=== PATIENT | male | born 1940 | race Caucasian/White ===

== ENCOUNTER 2016-07-25 07:45 | Day surgery (SDC) | payer MEDICARE, BC ==
[2016-07-24 08:53] VITALS: BMI 33.9
[~2016-07-25 07:45] MED LIST: DEXAMETHASONE SOD PHOSPHATE 10 MG/ML 1 ML VIAL IV ONE; HEPARIN SODIUM,PORCINE 5,000 UNIT/ML 1 ML VIAL SQ ONE; HYDROmorphone 1 MG/ML 1 ML SYRINGE IVP PRN; LACTATED RINGERS 1,000 ML IV ONE; LIDOCAINE 1% 20 ML VIAL (10MG/ML) FOR IV START INTRADERMA PRN; MIDAZOLAM 2 MG/2 ML VIAL IV PRN; ONDANSETRON 4 MG/2 ML VIAL IVP ONE; SCOPOLAMINE 1.5MG/72HR PATCH TRANSDERM ONE; ceFAZolin 2 GM in SODIUM CHLORIDE 0.9% 100 ML IVPB ONE
[2016-07-25 08:55] LABS: Glucose,Whole Blood 171 mg/dL (75-99)
--- NOTE | 2016-07-25 09:04 | P.GSHP ---
History of Present Illness H&P Date: 07/25/16 Chief Complaint: Incarcerated umbilical hernia This a 76-year-old male referred from Dr. Brennan. Patient presents today for laparoscopic robotic-assisted repair of incarcerated umbilical hernia. Patient' s had pain for several years in this area. - Constitutional Constitutional: Reports as per HPI Past Medical History Past Medical History: Diabetes Mellitus, Hyperlipidemia, Hypertension, Osteoarthritis (OA), Sleep Apnea/CPAP/BIPAP Additional Past Medical History / Comment(s): Hx. of Gout, uses C-PAP. 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 Surgery for Pilonidal cyst. Past Anesthesia/Blood Transfusion Reactions: No Reported Reaction Past Psychological History: No Psychological Hx Reported Smoking Status: Former smoker Past Alcohol Use History: None Reported Additional Past Alcohol Use History / Comment(s): Quit smoking in 1965, started as a teenager. Past Drug Use History: None Reported - Past Family History Mother Family Medical History: No Reported History Brother(s) Family Medical History: Cancer Additional Family Medical History / Comment(s): Skin cancer Medications and Allergies Home Medications Medication Instructions Recorded Confirmed Type Allopurinol [Zyloprim] 300 mg PO DAILY 07/24/16 07/24/16 History Cholecalciferol [Vitamin D3] 400 unit PO DAILY@1200 07/24/16 07/24/16 History Lisinopril [Zestril] 10 mg PO DAILY 07/24/16 07/24/16 History Multivitamin [Men's Multi-Vitamin] 1 each PO DAILY 07/24/16 07/24/16 History Simvastatin [Zocor] 20 mg PO DAILY 07/24/16 07/24/16 History Spironolactone-Hctz 25-25Mg 1 each PO DAILY 07/24/16 07/24/16 History [Aldactazide 25-25Mg] glipiZIDE XL [Glucotrol Xl] 5 mg PO BID 07/24/16 07/24/16 History sitaGLIPtin PHOS/metFORMIN HCL 1 each PO BID 07/24/16 07/24/16 History [Janumet 50-1,000 mg Tablet] Allergies Allergy/AdvReac Type Severity Reaction Status Date / Time No Known Allergies Allergy Verified 07/24/16 08:17 Surgical - Exam - General well developed, no distress - Eyes PERRL - ENT normal pinna - Neck no masses - Respiratory normal expansion - Cardiovascular Rhythm: regular - Abdomen Abdomen: soft, non tender Hernia: umbilical, incarcerated (5 cm) Results - Labs Abnormal Lab Results - Last 24 Hours (Table) 07/25/16 Range/Units 08:51 POC Glucose (mg/dL) 171 H (75-99) mg/dL Assessment and Plan Plan: Incarcerated umbilical hernia. We'll perform laparoscopic robotic assistance repair.
[2016-07-25] MEDS ORDERED: LACTATED RINGERS 1,000 ML IV ONE (09:13)
[2016-07-25] MEDS ORDERED: fentaNYL (PF) 50 MCG/ML 2 ML AMP ONE (09:17)
[2016-07-25] MEDS ORDERED: ROCURONIUM BROMIDE 10 MG/ML 10 ML VIAL IV ONE (09:17)
[2016-07-25] MEDS ORDERED: LIDOCAINE 1% INJ 10MG/ML (20 ML MDV) ONE (09:17)
[2016-07-25] MEDS ORDERED: MIDAZOLAM 2 MG/2 ML VIAL ONE (09:17)
[2016-07-25] MEDS ORDERED: GLYCOPYRROLATE 0.2 MG/ML 2 ML VIAL ONE (09:17)
[2016-07-25] MEDS ORDERED: PROPOFOL 10 MG/ML 20 ML VIAL IV ONE (09:17)
[2016-07-25] MEDS ORDERED: SUCCINYLCHOLINE CHLORIDE 100 MG/5 ML SYR IV ONE (09:17)
[2016-07-25] MEDS ORDERED: NEOSTIGMINE 1 MG/ML 10 ML VIAL ONE (09:17)
[2016-07-25] MEDS ORDERED: BUPIVACAIN-EPI 0.25%-1:200,000 30 ML VIAL SQ ONE ×2 (09:43)
--- NOTE | 2016-07-25 10:34 | P.OP ---
Date of Procedure: 07/25/16 Preoperative Diagnosis: Incarcerated umbilical hernia Postoperative Diagnosis: Incarcerated umbilical hernia Procedure(s) Performed: Laparoscopic robotic-assisted repair of incarcerated umbilical hernia Anesthesia: ALVARO Surgeon: Issac Raygoza Estimated Blood Loss (ml): 5 Pathology: none sent Condition: stable Disposition: PACU Description of Procedure: The patient's placed on the operative table in supine position. She received general anesthesia. Her abdomen was prepped and draped in the usual sterile fashion. A 5 mm blade less trocar was placed in the left upper quadrant under direct visualization. The abdomen was insufflated. Next a 8 mm robotic trocar was placed in the left lower quadrant and a 12 mm trocar is placed left lateral position. The patient's placed in the left side up position and the patient was docked to the robot. The patient had incarcerated omentum within his umbilical hernia. Using the cautery the omentum was dissected free from the hernia. The fascial defect was then closed using oh the lock suture. And then a 11 cm round ventral light ST mesh was placed the pelvic cavity and secured with 20V lock suture. The patient was undocked the robot. Adair were withdrawn. The fascia of the 12 mm trocar site was closed with the Alex Shea suture passer and 0 Ethibond suture. Skin was closed interrupted 3-0 Monocryl suture. Dermabond dressings was applied. Patient was sent to recovery in stable condition.
[2016-07-25 10:40] VITALS: TEMP 98
[2016-07-25 11:18] VITALS: RESP 18
[2016-07-25] MEDS ORDERED: HYDROcodone/APAP 7.5-325MG 1 EACH TAB PO ONE (11:30)
[2016-07-25 11:34] LABS: Glucose,Whole Blood 195 mg/dL (75-99)
[2016-07-25 11:52] VITALS: BP 118/66; PULSE 89
== END 2016-07-25 12:14 | disposition home or self-care (01) ==
LOC: OR 07:45
PROVIDERS: ATTEND Surgery
DX: K42.0 Umbilical hernia with obstruction, without gangrene (principal); E11.9 Type 2 diabetes mellitus without complications; E78.5 Hyperlipidemia, unspecified; I10 Essential (primary) hypertension; M19.90 Unspecified osteoarthritis, unspecified site; G47.33 Obstructive sleep apnea (adult) (pediatric); Z87.891 Personal history of nicotine dependence; Z79.84 Long term (current) use of oral hypoglycemic drugs; Z79.899 Other long term (current) drug therapy
CPT/HCPCS: 49653; C1781; J2250; J1644; J1100; J2710; J0690; J2405; J2001; J3010; J0330; J2704

== ENCOUNTER → 2017-06-27 | Outpatient (CLI) | payer MEDICARE, BC ==
[2017-06-27 07:51] LABS: Basophils # (A) 0.1 k/uL (0-0.2); Basophils % (A) 1 %; CH 30.7; Eosinophils # (A) 0.2 k/uL (0-0.7); Eosinophils % (A) 2 %; HCT 43.9 % (39.0-53.0); HGB 14.2 gm/dL (13.0-17.5); Luc # (Auto) 0.22; Luc % (Auto) 3; Lymphocytes # (A) 2.1 k/uL (1.0-4.8); Lymphocytes % (A) 26 %; MCH 31.2 pg (25.0-35.0); MCHC 32.4 g/dL (31.0-37.0); MCV 96.3 fL (80.0-100.0); Monocytes # (A) 0.6 k/uL (0-1.0); Monocytes % (A) 7 %; Neutrophils # (A) 4.9 k/uL (1.3-7.7); Neutrophils % (A) 61 %; RBC 4.56 m/uL (4.30-5.90); WBC 8.1 k/uL (3.8-10.6); WBC (Perox) 8.49
[2017-06-27 11:36] LABS: ALT 40 U/L (21-72); AST 26 U/L (17-59); Alkaline Phosphatase 97 U/L (38-126); Anion Gap 11 mmol/L; Blood Urea Nitrogen 28 mg/dL (9-20); Calcium 9.8 mg/dL (8.4-10.2); Carbon Dioxide 28 mmol/L (22-30); Chloride 99 mmol/L (98-107); Cholesterol 150 mg/dL (<200); Glucose 160 mg/dL (74-99); HDL Cholesterol 39 mg/dL (40-60); Non-African American GFR(MDRD) 58 (>60 ml/min/1.73 sqM); Potassium 4.7 mmol/L (3.5-5.1); Sodium 138 mmol/L (137-145); Total Bilirubin 0.6 mg/dL (0.2-1.3)
== END | disposition home or self-care (01) ==
LOC: LABWHC1 07:21
PROVIDERS: ATTEND Internal Medicine
DX: Z00.00 Encounter for general adult medical examination without abnormal findings (principal); E11.9 Type 2 diabetes mellitus without complications; E78.5 Hyperlipidemia, unspecified; I10 Essential (primary) hypertension; Z12.5 Encounter for screening for malignant neoplasm of prostate
CPT/HCPCS: 80061; 80053; 85025; 83036; 36415; G0103

== ENCOUNTER → 2018-07-03 | Outpatient (CLI) | payer MEDICARE, BC ==
[2018-07-03 08:28] LABS: HCT 43.3 % (39.0-53.0); HGB 13.8 gm/dL (13.0-17.5); MCH 30.9 pg (25.0-35.0); MCHC 31.8 g/dL (31.0-37.0); MCV 97.2 fL (80.0-100.0); Mean Platelet Volume 8.4; Platelet Count 228 k/uL (150-450); RBC 4.46 m/uL (4.30-5.90); RDW 13.2 % (11.5-15.5); WBC 10.3 k/uL (3.8-10.6)
[2018-07-03 15:56] LABS: Albumin 4.4 g/dL (3.80-4.90); Anion Gap 8.3 mmol/L (4.00-12.00); Calcium 9.5 mg/dL (8.7-10.3); Carbon Dioxide 26.7 mmol/L (21.6-31.8); Globulin 2.2 g/dL (1.6-3.3); LDL Cholesterol,Calculated 67.6 mg/dL (0.0-131.0); Potassium 4.4 mmol/L (3.5-5.5); Total Bilirubin 0.7 mg/dL (0.2-1.2); Total Protein 6.6 g/dL (6.2-8.2); VLDL Calculation 33.4 mg/dL (5.00-40.00)
[2018-07-03 19:02] LABS: Hemoglobin A1C 8.7 % (4.0-6.0)
== END ==
LOC: LABWHC1 08:00
PROVIDERS: ATTEND Internal Medicine
DX: Z00.00 Encounter for general adult medical examination without abnormal findings (principal); E11.9 Type 2 diabetes mellitus without complications; E78.5 Hyperlipidemia, unspecified; I10 Essential (primary) hypertension; Z12.5 Encounter for screening for malignant neoplasm of prostate
CPT/HCPCS: 80061; 80053; 85027; 83036; 36415; G0103

== ENCOUNTER → 2019-06-27 | Outpatient (CLI) | payer MEDICARE, BC ==
[2019-06-27 08:25] LABS: Basophils # (A) 0.1 k/uL (0-0.2); Basophils % (A) 1 %; Eosinophils # (A) 0.3 k/uL (0-0.7); Eosinophils % (A) 3 %; HCT 44.3 % (39.0-53.0); HGB 14.8 gm/dL (13.0-17.5); Lymphocytes # (A) 2.9 k/uL (1.0-4.8); Lymphocytes % (A) 28 %; MCH 32.4 pg (25.0-35.0); MCHC 33.4 g/dL (31.0-37.0); Mean Platelet Volume 9.4; Monocytes # (A) 0.7 k/uL (0-1.0); Monocytes % (A) 6 %; Neutrophils # (A) 6.2 k/uL (1.3-7.7); Neutrophils % (A) 59 %; Platelet Count 251 k/uL (150-450); RBC 4.56 m/uL (4.30-5.90); RDW 12.8 % (11.5-15.5); WBC 10.4 k/uL (3.8-10.6)
[2019-06-27 08:50] LABS: Appearance,Urine Clear (Clear); Bilirubin,Urine Negative (Negative); Blood,Urine Negative (Negative); Color,Urine Yellow; Glucose,Urine (UA) Negative (Negative); Ketones,Urine Negative (Negative); Leukocyte Esterase,Urine Negative (Negative); Nitrite,Urine Negative (Negative); PH, Urine 5.5 (5.0-8.0); Protein,Urine Negative (Negative); Specific Gravity,Urine 1.018 (1.001-1.035); Urobilinogen,Urine <2.0 mg/dL (<2.0)
[2019-06-27 16:15] LABS: African American GFR (CKD) 59.3 (60.0-200.0); Albumin 4.5 g/dL (3.80-4.90); Albumin/Globulin Ratio 1.96 (1.60-3.17); Anion Gap 9.8 mmol/L (4.00-12.00); BUN/Creat Ratio 23.85 Ratio (12.00-20.00); Calcium 9.5 mg/dL (8.7-10.3); Carbon Dioxide 27.2 mmol/L (21.6-31.8); Chol/HDL Ratio 3.63; Globulin 2.3 g/dL (1.6-3.3); LDL Cholesterol,Calculated 76.4 mg/dL (0.0-131.0); Non-African American GFR(CKD) 51.2 (60.0-200.0); Potassium 4.8 mmol/L (3.5-5.5); Total Bilirubin 0.6 mg/dL (0.3-1.2); Total Protein 6.8 g/dL (6.2-8.2); VLDL Calculation 28.6 mg/dL (5.00-40.00)
== END | disposition home or self-care (01) ==
LOC: LABWHC1 07:48
PROVIDERS: ATTEND Internal Medicine
DX: Z00.00 Encounter for general adult medical examination without abnormal findings (principal); Z12.5 Encounter for screening for malignant neoplasm of prostate; E11.9 Type 2 diabetes mellitus without complications; E78.5 Hyperlipidemia, unspecified; I10 Essential (primary) hypertension
CPT/HCPCS: 36415; 80053; 80061; 81003; 84153; 85025

== ENCOUNTER 2019-08-26 07:27 | Day surgery (SDC) | payer MEDICARE, BC ==
[2019-08-22 11:19] VITALS: BMI 33.9
[~2019-08-26 07:27] MED LIST changes: -DEXAMETHASONE SOD PHOSPHATE 10 MG/ML 1 ML VIAL IV ONE; -HEPARIN SODIUM,PORCINE 5,000 UNIT/ML 1 ML VIAL SQ ONE; -HYDROmorphone 1 MG/ML 1 ML SYRINGE IVP PRN; -LACTATED RINGERS 1,000 ML IV ONE; +LACTATED RINGERS 1,000 ML IV SCH; -LIDOCAINE 1% 20 ML VIAL (10MG/ML) FOR IV START INTRADERMA PRN; -MIDAZOLAM 2 MG/2 ML VIAL IV PRN; -ONDANSETRON 4 MG/2 ML VIAL IVP ONE; -SCOPOLAMINE 1.5MG/72HR PATCH TRANSDERM ONE; -ceFAZolin 2 GM in SODIUM CHLORIDE 0.9% 100 ML IVPB ONE
[2019-08-26] MEDS: PHENYLEPHRINE 10% OPHTH DROPS 5 ML BTL OP ONE ×3 (07:52→08:11)
[2019-08-26] MEDS: CYCLOPENTOLATE 1% OPHTH SOLN 2 ML BTL OP ONE ×3 (07:55→08:14)
[2019-08-26 07:56] VITALS: TEMP 97.1
[2019-08-26] MEDS: KETOROLAC 0.5% OPHTH DROPS 5 ML BTL OP ONE ×3 (08:00→08:16)
[2019-08-26] MEDS ORDERED: LIDOCAINE 1% 20 ML VIAL (10MG/ML) FOR IV START INTRADERMA ONE (08:01)
[2019-08-26 08:04] LABS: Glucose,Whole Blood 168 mg/dL (75-99)
[2019-08-26] MEDS ORDERED: PROPOFOL 10 MG/ML 20 ML VIAL IV ONE (09:04)
[2019-08-26] MEDS ORDERED: EPINEPHrine (PF) 0.5 ML in BALANCED SALT IRRIG SOLN COMB2 500 ML IRRIGATION ONE (09:20)
[2019-08-26] MEDS ORDERED: BALANCED SALT IRRIG SOLN COMB2 15 ML IRRIG.SOLN INTRAOCULA ONE (09:24)
[2019-08-26] MEDS ORDERED: HYALURONATE SODIUM INTRAOCULAR 1 EACH SYRINGE (10MG/ML) INTRAOCULA ONE (09:25)
[2019-08-26 09:37] VITALS: RESP 18
[2019-08-26 09:53] VITALS: BP 99/62; PULSE 74
--- NOTE | 2019-08-26 10:38 | P.OP ---
Date of Procedure: 08/26/19 Procedure(s) Performed: PREOPERATIVE DIAGNOSIS: Cataract, left eye. POSTOPERATIVE DIAGNOSIS: Cataract, left eye. OPERATION: Phacoemulsification of cataract, intraocular lens placement, left eye. DESCRIPTION OF PROCEDURE: The patient was taken to the operating room. Intravenous Propofol was given so as to bring about sedation. The following mixture was given for local anesthesia: 5 mL of 2% lidocaine, 5 mL of 0.75% Marcaine, and 1 mL of Wydase. Approximately 4 mL was injected in the retrobulbar space of the surgical eye. Additional 1 mL was then directed to the temporal area of the surgical eye. This was performed to allow adequate neurological block of the facial muscles. The patient was revived. The patient was prepped and draped in the usual sterile manner for the operative eye. A lid speculum was put into position. The conjunctiva was resected back from the limbus in the 12 o'clock position. Bleeding was controlled with electrocautery. A #69 blade was then used and a half-thickness scleral incision approximately 1-mm posterior to the limbus was made on bare sclera. This was shelved in the clear cornea using a crescent knife. Next a 15-degree blade was used to make a stab incision at the 3 o'clock position at the corneolimbal interface. A keratome blade was then used and the superior wound was extended into the anterior chamber. Viscoelastic was injected into the anterior chamber to maintain its form. A cystotome was used and a continuous anterior capsulot esdras was made. Hydrodissection of the lens cortex using a blunt cannula and BSS was performed. A phaco probe was then introduced and a groove extending from 12 to 6 o'clock in the lens was created. A Kemar wand was used through the stab incision and used to perform a divide and conquer dismantling of the cataract. An irrigation aspiration probe was utilized and any residual cortex was removed from the eye. Again, viscoelastic was injected into the anterior chamber. An Chris posterior chamber lens implant was placed in a delivery cartridge and injected into the anterior chamber. A Sinskey hook was utilized to spin the lens into position within the capsular bag. The irrigation and aspiration probe was again introduced and any residual viscoelastic was removed from the eye. BSS was injected via blunt canula into the limbal stab incision and the anterior chamber was re-inflated. The conjunctiva was reapproximated using electrocautery. One drop of 0.25% Timoptic was placed over the corneal along with an antibiotic ophthalmic ointment. Two sterile patches and a Garza eye shield were taped into position. The patient was transported to the recovery room in stable condition. Pathology: none sent Condition: stable Disposition: same day
[2019-08-26] MEDS ORDERED: BUPIVACAINE (PF) 0.75% 5 ML, HYALURONIDASE, HUMAN RECOMB 150 UNIT, LIDOCAINE 2% (PF) 10... MISCELLANE ONE ×3 (23:00)
[2019-08-26] MEDS ORDERED: TIMOLOL 0.5% OPHTH DROPS 5 ML BTL OP ONE (23:00)
[2019-08-26] MEDS ORDERED: TOBRA-DEXAMET 0.3-0.1% OPHTH OINT 3.5 GM TUBE OPHTHALMIC ONE (23:00)
== END 2019-08-26 10:14 | disposition home or self-care (01) ==
LOC: OR 07:27
PROVIDERS: ATTEND Ophthalmology
DX: E11.36 Type 2 diabetes mellitus with diabetic cataract (principal); H25.13 Age-related nuclear cataract, bilateral; H53.2 Diplopia; I10 Essential (primary) hypertension; M10.9 Gout, unspecified; G47.33 Obstructive sleep apnea (adult) (pediatric); E78.5 Hyperlipidemia, unspecified; Z87.891 Personal history of nicotine dependence; Z79.84 Long term (current) use of oral hypoglycemic drugs; Z79.899 Other long term (current) drug therapy; Z83.3 Family history of diabetes mellitus
CPT/HCPCS: 66984; V2632; J3470; J2001; J0171; J2704

== ENCOUNTER → 2019-09-23 | Day surgery (SDC) | payer MEDICARE, BC ==
[2019-09-22 10:36] VITALS: BMI 33.5
[~2019-09-23] MED LIST changes: +BALANCED SALT IRRIG SOLN COMB2 15 ML IRRIG.SOLN INTRAOCULA ONE; +BUPIVACAINE (PF) 0.75% 5 ML, HYALURONIDASE, HUMAN RECOMB 150 UNIT, LIDOCAINE 2% (PF) 10... MISCELLANE ONE; +EPINEPHrine (PF) 0.5 ML in BALANCED SALT IRRIG SOLN COMB2 500 ML IRRIGATION ONE; +GENTAMICIN/PREDNISOL AC OPHTH OINT 3.5GM OPHTHALMIC ONE; +HYALURONATE SODIUM INTRAOCULAR 1 EACH SYRINGE (10MG/ML) INTRAOCULA ONE; +MIDAZOLAM 2 MG/2 ML VIAL ONE; +PROPOFOL 10 MG/ML 20 ML VIAL IV ONE; +TIMOLOL 0.5% OPHTH DROPS 5 ML BTL OP ONE; +TOBRA-DEXAMET 0.3-0.1% OPHTH OINT 3.5 GM TUBE OPHTHALMIC ONE
[2019-09-23] MEDS: CYCLOPENTOLATE 1% OPHTH SOLN 2 ML BTL OP ONE ×3 (08:34→08:52)
[2019-09-23] MEDS: PHENYLEPHRINE 10% OPHTH DROPS 5 ML BTL OP ONE ×3 (08:37→08:55)
[2019-09-23] MEDS: KETOROLAC 0.5% OPHTH DROPS 5 ML BTL OP ONE ×2 (08:40→08:58)
[2019-09-23 08:49] LABS: Glucose,Whole Blood 187 mg/dL (75-99)
[2019-09-23 09:01] VITALS: TEMP 97.1
--- NOTE | 2019-09-23 09:37 | P.OP ---
Date of Procedure: 09/23/19 Procedure(s) Performed: PREOPERATIVE DIAGNOSIS: Cataract, right eye. POSTOPERATIVE DIAGNOSIS: Cataract, right eye. OPERATION: Phacoemulsification of cataract, intraocular lens placement, right eye. DESCRIPTION OF PROCEDURE: The patient was taken to the operating room. Intravenous Propofol was given so as to bring about sedation. The following mixture was given for local anesthesia: 5 mL of 2% lidocaine, 5 mL of 0.75% Marcaine, and 1 mL of Wydase. Approximately 4 mL was injected in the retrobu lbar space of the surgical eye. Additional 1 mL was then directed to the temporal area of the surgical eye. This was performed to allow adequate neurological block of the facial muscles. The patient was revived. The patient was prepped and draped in the usual sterile manner for the operative eye. A lid speculum was put into position. The conjunctiva was resected back from the limbus in the 12 o'clock position. Bleeding was controlled with electrocautery. A #69 blade was then used and a half-thickness scleral incision approximately 1-mm posterior to the limbus was made on bare sclera. This was shelved in the clear cornea using a crescent knife. Next a 15-degree blade was used to make a stab incision at the 3 o'clock position at the corneolimbal interface. A keratome blade was then used and the superior wound was extended into the anterior chamber. Viscoelastic was injected into the anterior chamber to maintain its form. A cystotome was used and a continuous anterior capsu lotomy was made. Hydrodissection of the lens cortex using a blunt cannula and BSS was performed. A phaco probe was then introduced and a groove extending from 12 to 6 o'clock in the lens was created. A Kemar wand was used through the stab incision and used to perform a divide and conquer dismantling of the cataract. An irrigation aspiration probe was utilized and any residual cortex was removed from the eye. Again, viscoelastic was injected into the anterior chamber. An Chris posterior chamber lens implant was placed in a delivery cartridge and injected into the anterior chamber. A Sinskey hook was utilized to spin the lens into position within the capsular bag. The irrigation and aspiration probe was again introduced and any residual viscoelastic was removed from the eye. BSS was injected via blunt canula into the limbal stab incision and the anterior chamber was re-inflated. The conjunctiva was reapproximated using electrocautery. One drop of 0.25% Timoptic was placed over the corneal along with an antibiotic ophthalmic ointment. Two sterile patches and a Garza eye shield were taped into position. The patient was transported to the recovery room in stable condition. Pathology: none sent Condition: stable Disposition: same day
[2019-09-23 09:41] VITALS: RESP 16
[2019-09-23 10:05] VITALS: BP 111/70; PULSE 74
== END | disposition home or self-care (01) ==
LOC: OR 07:32
PROVIDERS: ATTEND Ophthalmology
DX: E11.36 Type 2 diabetes mellitus with diabetic cataract (principal); H25.13 Age-related nuclear cataract, bilateral; Z83.3 Family history of diabetes mellitus; I10 Essential (primary) hypertension; M10.9 Gout, unspecified; E78.5 Hyperlipidemia, unspecified; G47.33 Obstructive sleep apnea (adult) (pediatric); M19.90 Unspecified osteoarthritis, unspecified site; Z87.891 Personal history of nicotine dependence; Z97.2 Presence of dental prosthetic device (complete) (partial); Z98.890 Other specified postprocedural states; Z79.84 Long term (current) use of oral hypoglycemic drugs; Z79.899 Other long term (current) drug therapy
CPT/HCPCS: 66984; V2632; J2250; J3470; J2001; J0171; J2704

== ENCOUNTER → 2020-07-16 | Outpatient (CLI) | payer MEDICARE, BC ==
[2020-07-16 12:20] LABS: Appearance,Urine Clear (Clear); Bilirubin,Urine Negative (Negative); Blood,Urine Negative (Negative); Color,Urine Yellow; Glucose,Urine (UA) Negative (Negative); Ketones,Urine Negative (Negative); Leukocyte Esterase,Urine Negative (Negative); Nitrite,Urine Negative (Negative); Protein,Urine Negative (Negative); Specific Gravity,Urine 1.019 (1.001-1.035); Urobilinogen,Urine <2.0 mg/dL (<2.0)
[2020-07-16 16:51] LABS: African American GFR (CKD) 58.9 (60.0-200.0); Albumin 4.5 g/dL (3.80-4.90); Albumin/Globulin Ratio 1.96 (1.60-3.17); Anion Gap 9.8 mmol/L (4.00-12.00); BUN/Creat Ratio 23.08 Ratio (12.00-20.00); Calcium 9.6 mg/dL (8.7-10.3); Carbon Dioxide 26.2 mmol/L (21.6-31.8); Chol/HDL Ratio 2.9; Globulin 2.3 g/dL (1.6-3.3); LDL Cholesterol,Calculated 75.2 mg/dL (0.0-131.0); Non-African American GFR(CKD) 50.8 (60.0-200.0); Potassium 4.5 mmol/L (3.5-5.5); Total Bilirubin 0.5 mg/dL (0.3-1.2); Total Protein 6.8 g/dL (6.2-8.2); VLDL Calculation 15.8 mg/dL (5.00-40.00)
[2020-07-16 17:14] LABS: Prostate Specific Antigen 0.4 ng/mL (0.0-6.5)
[2020-07-16 22:25] LABS: Urine Creatinine 108.9 mg/dL
== END | disposition home or self-care (01) ==
LOC: LABWHC1 07:45
PROVIDERS: ATTEND Internal Medicine
DX: I10 Essential (primary) hypertension (principal); E11.9 Type 2 diabetes mellitus without complications; E55.9 Vitamin D deficiency, unspecified; Z12.5 Encounter for screening for malignant neoplasm of prostate
CPT/HCPCS: 36415; 80053; 80061; 81003; 82043; 82306; 82570; 84153

== ENCOUNTER 2022-01-09 15:55 | Emergency (ER) | payer BC, MEDICARE ==
[2022-01-09 16:01] VITALS: TEMP 98.3
--- NOTE | 2022-01-09 16:21 | ED ---
General Adult HPI - General Chief complaint: Altered Mental Status Stated complaint: Altered Mental Time Seen by Provider: 01/09/22 16:05 Source: patient Mode of arrival: ambulatory Limitations: no limitations - History of Present Illness Initial comments: 81-year-old male with past medical history of diabetes, hypertension presents to the emergency department with altered mental status. Grandessenceughters at bedside and provides history. States that he was acting fine around 4 PM last night. He then went into the bedroom where he was with his . He attempted to sit on furniture that he hallucinated was behind him, however felt to the floor. U nknown if he has had however he had no external signs of trauma. The patient then laid down and was very sleepy throughout the night. This morning the patient awoke and went down the street to talk to neighbors. He pulled up in his vehicle onset high. He then fell asleep in his car. They state the patient has had similar symptoms in the past and was hospital is at [facility] for congestive heart failure. They deny any fevers. Patient is not on any anticoagulation. Patient denies any chest pain, shortness of breath, abdominal pain. No other alleviating, precipitating or modifying factors - Related Data Home Medications Medication Instructions Recorded Confirmed Simvastatin [Zocor] 20 mg PO DAILY 07/24/16 01/09/22 allopurinoL [Zyloprim] 300 mg PO DAILY 07/24/16 01/09/22 glipiZIDE XL [Glucotrol Xl] 10 mg PO BID 07/24/16 01/09/22 sitaGLIPtin PHOS/metFORMIN HCL 1 tab PO BID 07/24/16 01/09/22 [Janumet 50-1,000 mg Tablet] Cholecalciferol [Vitamin D3 (25 50 mcg PO DAILY 01/09/22 01/09/22 Mcg = 1000 Iu)] Furosemide [Lasix] 40 mg PO DAILY PRN 01/09/22 01/09/22 Tamsulosin [Flomax] 0.4 mg PO DAILY 01/09/22 01/09/22 Tobra-Dexamet 0.3-0.1% Eye Talita 1 drop BOTH EYES TID 01/09/22 01/09/22 [Tobradex Ophth Susp] Allergies Allergy/AdvReac Type Severity Reaction Status Date / Time No Known Allergies Allergy Verified 01/09/22 16:53 Review of Systems ROS Statement: Those systems with pertinent positive or pertinent negative responses have been documented in the HPI. ROS Other: All systems not noted in ROS Statement are negative. Past Medical History Past Medical History: Diabetes Mellitus, Hyperlipidemia, Hypertension, Osteoarthritis (OA), Sleep Apnea/CPAP/BIPAP Additional Past Medical History / Comment(s): Hx. of Gout, uses C-PAP. 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 Surgery for Pilonidal cyst. Past Anesthesia/Blood Transfusion Reactions: No Reported Reaction Past Psychological History: No Psychological Hx Reported Past Alcohol Use History: None Reported Past Drug Use History: None Reported - Past Family History Mother Family Medical History: No Reported History Brother(s) Family Medical History: Cancer Additional Family Medical History / Comment(s): Skin cancer General Exam Limitations: no limitations, physical limitation (hard of hearing) General appearance: alert, in no apparent distress Head exam: Present: atraumatic, normocephalic, normal inspection Eye exam: Present: normal appearance, PERRL, EOMI. Absent: scleral icterus, conjunctival injection, periorbital swelling ENT exam: Present: normal exam, mucous membranes moist Neck exam: Present: normal inspection. Absent: tenderness, meningismus, lymphadenopathy Respiratory exam: Present: normal lung sounds bilaterally. Absent: respiratory distress, wheezes, rales, rhonchi, stridor Cardiovascular Exam: Present: regular rate, normal rhythm, normal heart sounds. Absent: systolic murmur, diastolic murmur, rubs, gallop, clicks GI/Abdominal exam: Present: soft, normal bowel sounds. Absent: distended, tenderness, guarding, rebound, rigid Extremities exam: Present: normal inspection, full ROM, normal capillary refill, pedal edema (2+). Absent: tenderness, joint swelling, calf tenderness Back exam: Present: normal inspection Neurological exam: Present: alert, oriented X3, CN II-XII intact Psychiatric exam: Present: normal affect, normal mood Skin exam: Present: warm, dry, intact, normal color. Absent: rash Course Vital Signs 01/09/22 01/09/22 01/09/22 15:57 18:20 20:00 Temperature 98.3 F Pulse Rate 87 85 Respiratory 16 18 Rate Blood Pressure 119/64 113/74 117/63 O2 Sat by Pulse 95 95 Oximetry 01/09/22 20:15 Temperature Pulse Rate 81 Respiratory 6 L Rate Blood Pressure 117/83 O2 Sat by Pulse 98 Oximetry - Reevaluation(s) Reevaluation #1: 01/09/22 4661 - spoke with patient. Adamant that he wants to go home. Did request second troponin level for which she was agreeable to. Troponin drawn and running at this time. EKG Findings - EKG Comments: EKG Findings:: EKG demonstrates sinus rhythm with a rate of 85. HI interval 155. QRS 101. QTC of 440. No acute ST segment elevations or depressions Medical Decision Making - Medical Decision Making Upon arrival patient is placed into room 7. Thorough history and physical exam was performed. IV is established and laboratory studies are conducted. Troponin mildly elevated at 0.059. Patient does have an elevated BNP of 1510. Urinalysis negative. Chest x-ray demonstrates mild fluid versus interstitial pneumonia. Patient has no current signs of pneumonia. CT head and cervical spine demonstrates mild atrophy and chronic small vessel ischemia with no acute intracranial abnormality. Results are discussed with the patient. He has been conversing with family and is appropriate. Patient is requesting discharge home. I did recommend admission. Patient is awake, alert and capable of making his own decisions. He does have family at bedside. Family is agreeable to take him home for monitoring. He needs to follow up with his primary care doctor in 2-4 days and return for any new or worsening symptoms. Patient and family agreed and he was discharged home in stable condition I did obtain an ABG which demonstrates a pH 7.4. PCO2 40. PO2 of 72. Sats of 95 - Lab Data Result diagrams: 01/09/22 16:25 01/09/22 16:25 Lab Results 01/09/22 01/09/22 01/09/22 Range/Units 16:25 16:25 16:25 WBC 9.7 (3.8-10.6) k/uL RBC 3.91 L (4.30-5.90) m/uL Hgb 12.6 L (13.0-17.5) gm/dL Hct 38.3 L (39.0-53.0) % MCV 98.0 (80.0-100.0) fL MCH 32.3 (25.0-35.0) pg MCHC 33.0 (31.0-37.0) g/dL RDW 14.5 (11.5-15.5) % Plt Count 186 (150-450) k/uL MPV 9.8 Neutrophils % 62 % Lymphocytes % 27 % Monocytes % 7 % Eosinophils % 2 % Basophils % 1 % Neutrophils # 6.0 (1.3-7.7) k/uL Lymphocytes # 2.6 (1.0-4.8) k/uL Monocytes # 0.7 (0-1.0) k/uL Eosinophils # 0.2 (0-0.7) k/uL Basophils # 0.1 (0-0.2) k/uL PT (9.0-12.0) sec INR (<1.2) APTT (22.0-30.0) sec Sample Site ABG pH (7.35-7.45) ABG pCO2 (35-45) mmHg ABG pO2 (83-108) mmHg ABG HCO3 (21-25) mmol/L ABG Total CO2 (19-24) mmol/L ABG O2 Saturation (94-97) % ABG Base Excess mmol/L Leon Test FiO2 % Sodium 135 L (137-145) mmol/L Potassium 3.8 (3.5-5.1) mmol/L Chloride 98 (98-107) mmol/L Carbon Dioxide 27 (22-30) mmol/L Anion Gap 10 mmol/L BUN 19 (9-20) mg/dL Creatinine 1.16 (0.66-1.25) mg/dL Est GFR (CKD-EPI)AfAm 68 (>60 ml/min/1.73 sqM) Est GFR (CKD-EPI)NonAf 58 (>60 ml/min/1.73 sqM) Glucose 147 H (74-99) mg/dL Calcium 8.8 (8.4-10.2) mg/dL Total Bilirubin 0.5 (0.2-1.3) mg/dL AST 24 (17-59) U/L ALT 13 (4-49) U/L Alkaline Phosphatase 110 (38-126) U/L Ammonia (<30) umol/L Troponin I (0.000-0.034) ng/mL NT-Pro-B Natriuret Pep pg/mL Total Protein 7.1 (6.3-8.2) g/dL Albumin 4.0 (3.5-5.0) g/dL TSH 3.450 (0.465-4.680) mIU/L Urine Color Yellow Urine Appearance Clear (Clear) Urine pH 6.0 (5.0-8.0) Ur Specific [place] 1.011 (1.001-1.035) Urine Protein Negative (Negative) Urine Glucose (UA) Negative (Negative) Urine Ketones Negative (Negative) Urine Blood Negative (Negative) Urine Nitrite Negative (Negative) Urine Bilirubin Negative (Negative) Urine Urobilinogen <2.0 (<2.0) mg/dL Ur Leukocyte Esterase Negative (Negative) Urine Opiates Screen Not Detected (NotDetected) Ur Oxycodone Screen Not Detected (NotDetected) Urine Methadone Screen Not Detected (NotDetected) Ur Propoxyphene Screen Not Detected (NotDetected) Ur Barbiturates Screen Not Detected (NotDetected) U Tricyclic Antidepress Not Detected (NotDetected) Ur Phencyclidine Scrn Not Detected (NotDetected) Ur Amphetamines Screen Not Detected (NotDetected) U Methamphetamines Scrn Not Detected (NotDetected) U Benzodiazepines Scrn Not Detected (NotDetected) Urine Cocaine Screen Not Detected (NotDetected) U Marijuana (THC) Screen Not Detected (NotDetected) Serum Alcohol <10 mg/dL 01/09/22 01/09/22 01/09/22 Range/Units 16:25 16:25 16:25 WBC (3.8-10.6) k/uL RBC (4.30-5.90) m/uL Hgb (13.0-17.5) gm/dL Hct (39.0-53.0) % MCV (80.0-100.0) fL MCH (25.0-35.0) pg MCHC (31.0-37.0) g/dL RDW (11.5-15.5) % Plt Count (150-450) k/uL MPV Neutrophils % % Lymphocytes % % Monocytes % % Eosinophils % % Basophils % % Neutrophils # (1.3-7.7) k/uL Lymphocytes # (1.0-4.8) k/uL Monocytes # (0-1.0) k/uL Eosinophils # (0-0.7) k/uL Basophils # (0-0.2) k/uL PT (9.0-12.0) sec INR (<1.2) APTT (22.0-30.0) sec Sample Site ABG pH (7.35-7.45) ABG pCO2 (35-45) mmHg ABG pO2 (83-108) mmHg ABG HCO3 (21-25) mmol/L ABG Total CO2 (19-24) mmol/L ABG O2 Saturation (94-97) % ABG Base Excess mmol/L Leon Test FiO2 % Sodium (137-145) mmol/L Potassium (3.5-5.1) mmol/L Chloride (98-107) mmol/L Carbon Dioxide (22-30) mmol/L Anion Gap mmol/L BUN (9-20) mg/dL Creatinine (0.66-1.25) mg/dL Est GFR (CKD-EPI)AfAm (>60 ml/min/1.73 sqM) Est GFR (CKD-EPI)NonAf (>60 ml/min/1.73 sqM) Glucose (74-99) mg/dL Calcium (8.4-10.2) mg/dL Total Bilirubin (0.2-1.3) mg/dL AST (17-59) U/L ALT (4-49) U/L Alkaline Phosphatase (38-126) U/L Ammonia <9 (<30) umol/L Troponin I 0.059 H* (0.000-0.034) ng/mL NT-Pro-B Natriuret Pep 1510 pg/mL Total Protein (6.3-8.2) g/dL Albumin (3.5-5.0) g/dL TSH (0.465-4.680) mIU/L Urine Color Urine Appearance (Clear) Urine pH (5.0-8.0) Ur Specific [place] (1.001-1.035) Urine Protein (Negative) Urine Glucose (UA) (Negative) Urine Ketones (Negative) Urine Blood (Negative) Urine Nitrite (Negative) Urine Bilirubin (Negative) Urine Urobilinogen (<2.0) mg/dL Ur Leukocyte Esterase (Negative) Urine Opiates Screen (NotDetected) Ur Oxycodone Screen (NotDetected) Urine Methadone Screen (NotDetected) Ur Propoxyphene Screen (NotDetected) Ur Barbiturates Screen (NotDetected) U Tricyclic Antidepress (NotDetected) Ur Phencyclidine Scrn (NotDetected) Ur Amphetamines Screen (NotDetected) U Methamphetamines Scrn (NotDetected) U Benzodiazepines Scrn (NotDetected) Urine Cocaine Screen (NotDetected) U Marijuana (THC) Screen (NotDetected) Serum Alcohol mg/dL 01/09/22 01/09/22 01/09/22 Range/Units 16:40 18:03 18:43 WBC (3.8-10.6) k/uL RBC (4.30-5.90) m/uL Hgb (13.0-17.5) gm/dL Hct (39.0-53.0) % MCV (80.0-100.0) fL MCH (25.0-35.0) pg MCHC (31.0-37.0) g/dL RDW (11.5-15.5) % Plt Count (150-450) k/uL MPV Neutrophils % % Lymphocytes % % Monocytes % % Eosinophils % % Basophils % % Neutrophils # (1.3-7.7) k/uL Lymphocytes # (1.0-4.8) k/uL Monocytes # (0-1.0) k/uL Eosinophils # (0-0.7) k/uL Basophils # (0-0.2) k/uL PT 11.4 (9.0-12.0) sec INR 1.1 (<1.2) APTT 26.5 (22.0-30.0) sec Sample Site rbrac ABG pH 7.45 (7.35-7.45) ABG pCO2 41 (35-45) mmHg ABG pO2 73 L (83-108) mmHg ABG HCO3 28 H (21-25) mmol/L ABG Total CO2 29 H (19-24) mmol/L ABG O2 Saturation 95.5 (94-97) % ABG Base Excess 3.8 mmol/L Leon Test Yes FiO2 21 % Sodium (137-145) mmol/L Potassium (3.5-5.1) mmol/L Chloride (98-107) mmol/L Carbon Dioxide (22-30) mmol/L Anion Gap mmol/L BUN (9-20) mg/dL Creatinine (0.66-1.25) mg/dL Est GFR (CKD-EPI)AfAm (>60 ml/min/1.73 sqM) Est GFR (CKD-EPI)NonAf (>60 ml/min/1.73 sqM) Glucose (74-99) mg/dL Calcium (8.4-10.2) mg/dL Total Bilirubin (0.2-1.3) mg/dL AST (17-59) U/L ALT (4-49) U/L Alkaline Phosphatase (38-126) U/L Ammonia (<30) umol/L Troponin I 0.070 H* (0.000-0.034) ng/mL NT-Pro-B Natriuret Pep pg/mL Total Protein (6.3-8.2) g/dL Albumin (3.5-5.0) g/dL TSH (0.465-4.680) mIU/L Urine Color Urine Appearance (Clear) Urine pH (5.0-8.0) Ur Specific [place] (1.001-1.035) Urine Protein (Negative) Urine Glucose (UA) (Negative) Urine Ketones (Negative) Urine Blood (Negative) Urine Nitrite (Negative) Urine Bilirubin (Negative) Urine Urobilinogen (<2.0) mg/dL Ur Leukocyte Esterase (Negative) Urine Opiates Screen (NotDetected) Ur Oxycodone Screen (NotDetected) Urine Methadone Screen (NotDetected) Ur Propoxyphene Screen (NotDetected) Ur Barbiturates Screen (NotDetected) U Tricyclic Antidepress (NotDetected) Ur Phencyclidine Scrn (NotDetected) Ur Amphetamines Screen (NotDetected) U Methamphetamines Scrn (NotDetected) U Benzodiazepines Scrn (NotDetected) Urine Cocaine Screen (NotDetected) U Marijuana (THC) Screen (NotDetected) Serum Alcohol mg/dL Disposition Clinical Impression: Acute encephalopathy Disposition: HOME SELF-CARE Condition: Stable Instructions (If sedation given, give patient instructions): Altered Mental Status (ED) Additional Instructions: Please return to the emergency department should your symptoms worsen. I would like you to see your doctor within 2-4 days. Is patient prescribed a controlled substance at d/c from ED?: No Referrals: Gracie Lazar MD [Primary Care Provider] - 1-2 days Time of Disposition: 19:54
[2022-01-09 16:41] LABS: ALT 13 U/L (4-49); AST 24 U/L (17-59); African American GFR (CKD) 68 (>60 ml/min/1.73 sqM); Alcohol <10 mg/dL; Alkaline Phosphatase 110 U/L (38-126); Anion Gap 10 mmol/L; Blood Urea Nitrogen 19 mg/dL (9-20); Calcium 8.8 mg/dL (8.4-10.2); Carbon Dioxide 27 mmol/L (22-30); Chloride 98 mmol/L (98-107); Glucose 147 mg/dL (74-99); Non-African American GFR(CKD) 58 (>60 ml/min/1.73 sqM); Potassium 3.8 mmol/L (3.5-5.1); Sodium 135 mmol/L (137-145); Total Bilirubin 0.5 mg/dL (0.2-1.3); Total Protein 7.1 g/dL (6.3-8.2)
[2022-01-09 16:45] LABS: Basophils # (A) 0.1 k/uL (0-0.2); Basophils % (A) 1 %; Eosinophils # (A) 0.2 k/uL (0-0.7); Eosinophils % (A) 2 %; HCT 38.3 % (39.0-53.0); HGB 12.6 gm/dL (13.0-17.5); Lymphocytes # (A) 2.6 k/uL (1.0-4.8); Lymphocytes % (A) 27 %; MCH 32.3 pg (25.0-35.0); Mean Platelet Volume 9.8; Monocytes # (A) 0.7 k/uL (0-1.0); Monocytes % (A) 7 %; Neutrophils % (A) 62 %; Platelet Count 186 k/uL (150-450); RBC 3.91 m/uL (4.30-5.90); RDW 14.5 % (11.5-15.5); WBC 9.7 k/uL (3.8-10.6)
[2022-01-09 16:56] LABS: INR 1.1 (<1.2); Prothrombin Time 11.4 sec (9.0-12.0)
[2022-01-09 16:57] LABS: Partial Thromboplastin Time 26.5 sec (22.0-30.0)
--- NOTE | 2022-01-09 17:11 | CT ---
EXAMINATION TYPE: CT brain susan phelps DATE OF EXAM: 01/09/2022 COMPARISON: None HISTORY: Altered mental status. CT DLP: 1794.5 mGycm Automated exposure control for dose reduction was used. There is cerebral cortical atrophy. There is minimal hypodensity in the periventricular white matter. There is no mass effect or midline shift. No sign of intracranial hemorrhage. The calvarium is intac t skull base is intact. There is normal aeration of the temporal bones. Cervical vertebrae show degenerative disc space narrowing at C5-6 and C6-7 with spurring of the endpl ates. There is mild cervical multilevel facet arthropathy. No compression fracture. There is a slight anterior subluxation of C5 in relation to C6. No cervical paraspinal mass. Facet joints are intact. IMPRESSION: Mild atrophy and chronic small vessel ischemia. No acute intracranial abnormality. Spondylotic changes in the cervical spine. No fracture.
--- NOTE | 2022-01-09 17:12 | XR ---
EXAMINATION TYPE: XR chest 2V DATE OF EXAM: 01/09/2022 COMPARISON: NONE HISTORY: Altered mental status TECHNIQUE: 2 views FINDINGS: There is coarsening of the interstitial markings. There is pulmonary interstitial edema. He art size is normal. Thoracic aorta is atheromatous. There are chest leads. IMPRESSION: There is some pulmonary edema could be acute heart failure or acute interstitial pneumoni a.
[2022-01-09 18:06] LABS: ABG Base Excess 3.8 mmol/L; ABG HCO3 28 mmol/L (21-25); ABG Oxygen Saturation 95.5 % (94-97); ABG PCO2 41 mmHg (35-45); ABG PH 7.45 (7.35-7.45); ABG PO2 73 mmHg (83-108); ABG TCO2 29 mmol/L (19-24); Allen Test Performed? Yes
[2022-01-09 18:37] LABS: Appearance,Urine Clear (Clear); Bilirubin,Urine Negative (Negative); Blood,Urine Negative (Negative); Color,Urine Yellow; Glucose,Urine (UA) Negative (Negative); Ketones,Urine Negative (Negative); Leukocyte Esterase,Urine Negative (Negative); Nitrite,Urine Negative (Negative); Protein,Urine Negative (Negative); Specific Gravity,Urine 1.011 (1.001-1.035); Urobilinogen,Urine <2.0 mg/dL (<2.0)
[2022-01-09 18:44] LABS: Amphetamine Screen,Urine Not Detected (NotDetected); Barbiturate Screen,Urine Not Detected (NotDetected); Benzodiazepines Screen,Urine Not Detected (NotDetected); Cocaine Screen,Urine Not Detected (NotDetected); Methadone Screen, Urine Not Detected (NotDetected); Opiate Screen,Urine Not Detected (NotDetected); Oxycodone Screen, Urine Not Detected (NotDetected); Phencyclidine Screen,Urine Not Detected (NotDetected); Tricyclic Antidepressant,Urine Not Detected (NotDetected); Urn Cannabinoid Scrn Not Detected (NotDetected)
[2022-01-09 21:01] VITALS: BP 117/83; PULSE 81; RESP 6
== END 2022-01-09 20:15 | disposition home or self-care (01) ==
LOC: EC 15:55
DX: G93.40 Encephalopathy, unspecified (principal); E11.9 Type 2 diabetes mellitus without complications; E78.5 Hyperlipidemia, unspecified; I10 Essential (primary) hypertension; Z79.899 Other long term (current) drug therapy; Z79.84 Long term (current) use of oral hypoglycemic drugs
CPT/HCPCS: 36415; 36600; 93005; 83880; 80053; 84443; 82140; 82805; 84484; 85025; 85610; 85730; 81003; 80306; 71046; 72125; 70450; 99285; G0480; 80320

== ENCOUNTER 2022-03-09 14:05 | Inpatient (IN) | payer BC, MEDICARE ==
[2022-03-09] MEDS ORDERED: SODIUM CHLORIDE 0.9% 2,000 ML IV ONE (19:10)
[2022-03-09] MEDS ORDERED: AMPICILLIN-SULBACTAM 3 GM in SODIUM CHLORIDE 0.9% 100 ML IVPB STA (19:10)
--- NOTE | 2022-03-09 20:06 | XR ---
RESULT: HISTORY: 4th digit redness, swelling, discharge TECHNIQUE: 3 views of the left foot were obtained. COMPARISON: None. FINDINGS: There is focal osteopenia and indistinctness of the fourth toe distal phalanx. No soft tissue gas see n. There is prior partial limitation of the second toe at the level of the proximal phalangeal base. Atherosclerotic calcifications are seen. There are scattered mild degenerative changes. Otherwise no acute fracture or dislocation. IMPRESSION: Findings compatible with osteomyelitis of the fourth toe distal phalanx.
[2022-03-09 20:08] LABS: Basophils # (A) 0.1 k/uL (0-0.2); Basophils % (A) 1 %; Eosinophils # (A) 0.2 k/uL (0-0.7); Eosinophils % (A) 1 %; HCT 42.1 % (39.0-53.0); HGB 13.2 gm/dL (13.0-17.5); Lymphocytes # (A) 2.5 k/uL (1.0-4.8); Lymphocytes % (A) 19 %; MCH 29.6 pg (25.0-35.0); MCHC 31.3 g/dL (31.0-37.0); MCV 94.6 fL (80.0-100.0); Monocytes # (A) 0.9 k/uL (0-1.0); Monocytes % (A) 7 %; Neutrophils # (A) 9.8 k/uL (1.3-7.7); Neutrophils % (A) 71 %; Platelet Count 334 k/uL (150-450); RBC 4.45 m/uL (4.30-5.90); RDW 14.8 % (11.5-15.5); WBC 13.8 k/uL (3.8-10.6)
[2022-03-09] MEDS ORDERED: VANCOMYCIN IV PER PHARMACY 1 EACH MISC MISCELLANE PRN (20:13)
--- NOTE | 2022-03-09 20:24 | ED ---
Wound/Laceration HPI - General Chief Complaint: Wound/Laceration Stated Complaint: infected toe Time Seen by Provider: 03/09/22 18:44 Source: patient Mode of arrival: wheelchair - History of Present Illness Initial Comments: Patient is an 81-year-old male presenting with chief complaint of wound to the left fourth toe. Patient states wound initially started in January. Patient sees wound care, has been taking Keflex since Sunday. Reports wound has been worsening, there is discharge, redness, swelling, redness spreading up the foot. Patient has neuropathy and does not admit to much pain. Denies fever, chills, nausea, vomiting, loss of range of motion, weakness, chest pain, shortness of breath, leg pain. - Related Data Home Medications Medication Instructions Recorded Confirmed Simvastatin [Zocor] 20 mg PO HS 07/24/16 03/09/22 allopurinoL [Zyloprim] 300 mg PO DAILY 07/24/16 03/09/22 sitaGLIPtin PHOS/metFORMIN HCL 1 tab PO BID 07/24/16 03/09/22 [Janumet 50-1,000 mg Tablet] Furosemide [Lasix] 40 mg PO DAILY 01/09/22 03/09/22 Tamsulosin [Flomax] 0.4 mg PO DAILY 01/09/22 03/09/22 Cephalexin [Keflex] 500 mg PO TID 03/09/22 03/09/22 glipiZIDE [Glucotrol XL] 10 mg PO BID 03/09/22 03/09/22 Allergies Allergy/AdvReac Type Severity Reaction Status Date / Time No Known Allergies Allergy Verified 03/09/22 23:23 Review of Systems ROS Statement: Those systems with pertinent positive or pertinent negative responses have been documented in the HPI. ROS Other: All systems not noted in ROS Statement are negative. Past Medical History Past Medical History: Diabetes Mellitus, Hyperlipidemia, Hypertension, Osteoarthritis (OA), Sleep Apnea/CPAP/BIPAP Additional Past Medical History / Comment(s): Hx. of Gout, uses C-PAP. 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 Surgery for Pilonidal cyst. Past Anesthesia/Blood Transfusion Reactions: No Reported Reaction Past Psychological History: No Psychological Hx Reported Past Alcohol Use History: None Reported Past Drug Use History: None Reported - Past Family History Mother Family Medical History: No Reported History Brother(s) Family Medical History: Cancer Additional Family Medical History / Comment(s): Skin cancer General Exam Limitations: no limitations General appearance: alert, in no apparent distress Head exam: Present: atraumatic, normocephalic, normal inspection Eye exam: Present: normal appearance, EOMI. Absent: scleral icterus, periorbital swelling Neck exam: Present: normal inspection Respiratory exam: Present: normal lung sounds bilaterally. Absent: respiratory distress, wheezes, rales, rhonchi, stridor Cardiovascular Exam: Present: regular rate, normal rhythm, normal heart sounds. Absent: systolic murmur, diastolic murmur, rubs, gallop, clicks Left Foot/Toe exam: Present: tenderness, swelling, erythema Neurological exam: Present: alert, oriented X3, CN II-XII intact Psychiatric exam: Present: normal affect, normal mood Course Vital Signs 03/09/22 14:38 Temperature 98.1 F Pulse Rate 90 Respiratory 16 Rate Blood Pressure 106/59 O2 Sat by Pulse 97 Oximetry Medical Decision Making - Medical Decision Making Patient is an 81-year-old male presenting with chief complaint of wound to the left fourth toe. Wound is been present since January, over the weekend patient noticed a worsening, he's been on Keflex since Sunday. Today her daughter reassessed the wound, brought him to the ER for evaluation. On examination there is some tenderness to palpation, patient admits to neuropathy and baseline decreased sensation. There is erythema of the toe spreading up the foot. Clear puncture wound is seen. X-ray findings remarkable for osteomyelitis. WBC 13.8 with left shift. Lactic acid 2.8. Patient is started on Unasyn and vancomycin. Patient is started on 2 L fluid bolus and placed on maintenance rate of 130 mls per hour. Patient will be admitted for IV antibiotics and infectious disease consultation. I discussed these findings and plan with the patient and his family, they were agreeable. I spoke with Nuris from [facility] WHO AGREED TO ADMIT THE PATIENT, I CONSULTED INFECTIOUS DISEASE. I discussed this case with my attending Dr. Kendrick. - Lab Data Result diagrams: 03/09/22 19:33 03/09/22 19:33 Lab Results 03/09/22 03/09/22 03/09/22 Range/Units 19:33 19:33 19:33 WBC 13.8 H (3.8-10.6) k/uL RBC 4.45 (4.30-5.90) m/uL Hgb 13.2 (13.0-17.5) gm/dL Hct 42.1 (39.0-53.0) % MCV 94.6 (80.0-100.0) fL MCH 29.6 (25.0-35.0) pg MCHC 31.3 (31.0-37.0) g/dL RDW 14.8 (11.5-15.5) % Plt Count 334 (150-450) k/uL MPV 9.0 Neutrophils % 71 % Lymphocytes % 19 % Monocytes % 7 % Eosinophils % 1 % Basophils % 1 % Neutrophils # 9.8 H (1.3-7.7) k/uL Lymphocytes # 2.5 (1.0-4.8) k/uL Monocytes # 0.9 (0-1.0) k/uL Eosinophils # 0.2 (0-0.7) k/uL Basophils # 0.1 (0-0.2) k/uL Sodium 137 (137-145) mmol/L Potassium 4.4 (3.5-5.1) mmol/L Chloride 95 L (98-107) mmol/L Carbon Dioxide 27 (22-30) mmol/L Anion Gap 15 mmol/L BUN 21 H (9-20) mg/dL Creatinine 1.23 (0.66-1.25) mg/dL Est GFR (CKD-EPI)AfAm 63 (>60 ml/min/1.73 sqM) Est GFR (CKD-EPI)NonAf 54 (>60 ml/min/1.73 sqM) Glucose 223 H (74-99) mg/dL Lactic Ac Sepsis Rflx Plasma Lactic Acid Hari 2.8 H* (0.7-2.0) mmol/L Calcium 9.4 (8.4-10.2) mg/dL Total Bilirubin 0.7 (0.2-1.3) mg/dL AST 22 (17-59) U/L ALT 13 (4-49) U/L Alkaline Phosphatase 147 H (38-126) U/L Total Protein 7.7 (6.3-8.2) g/dL Albumin 4.0 (3.5-5.0) g/dL 03/09/22 Range/Units 20:15 WBC (3.8-10.6) k/uL RBC (4.30-5.90) m/uL Hgb (13.0-17.5) gm/dL Hct (39.0-53.0) % MCV (80.0-100.0) fL MCH (25.0-35.0) pg MCHC (31.0-37.0) g/dL RDW (11.5-15.5) % Plt Count (150-450) k/uL MPV Neutrophils % % Lymphocytes % % Monocytes % % Eosinophils % % Basophils % % Neutrophils # (1.3-7.7) k/uL Lymphocytes # (1.0-4.8) k/uL Monocytes # (0-1.0) k/uL Eosinophils # (0-0.7) k/uL Basophils # (0-0.2) k/uL Sodium (137-145) mmol/L Potassium (3.5-5.1) mmol/L Chloride (98-107) mmol/L Carbon Dioxide (22-30) mmol/L Anion Gap mmol/L BUN (9-20) mg/dL Creatinine (0.66-1.25) mg/dL Est GFR (CKD-EPI)AfAm (>60 ml/min/1.73 sqM) Est GFR (CKD-EPI)NonAf (>60 ml/min/1.73 sqM) Glucose (74-99) mg/dL Lactic Ac Sepsis Rflx Y Plasma Lactic Acid Hari (0.7-2.0) mmol/L Calcium (8.4-10.2) mg/dL Total Bilirubin (0.2-1.3) mg/dL AST (17-59) U/L ALT (4-49) U/L Alkaline Phosphatase (38-126) U/L Total Protein (6.3-8.2) g/dL Albumin (3.5-5.0) g/dL Disposition Clinical Impression: Osteomyelitis Disposition: ADMITTED IP TO THIS [facility] Condition: Serious Time of Disposition: 20:24 Decision to Admit Reason: Admit from EC Decision Date: 03/09/22 Decision Time: 20:24
[2022-03-09 20:29] LABS: Calcium 9.4 mg/dL (8.4-10.2); Potassium 4.4 mmol/L (3.5-5.1); Total Bilirubin 0.7 mg/dL (0.2-1.3); Total Protein 7.7 g/dL (6.3-8.2)
[2022-03-09] MEDS ORDERED: IBUPROFEN 400 MG TAB PO PRN (20:43)
[2022-03-09] MEDS ORDERED: ACETAMINOPHEN TAB 325 MG TAB PO PRN (20:43)
[2022-03-09] MEDS ORDERED: NALOXONE 0.4 MG/ML 1 ML VIAL IV PRN (20:43)
[2022-03-09] MEDS ORDERED: VANCOMYCIN 1,750 MG in SODIUM CHLORIDE 0.9% 500 ML 500 ML IVPB ONE (20:45)
[2022-03-10] MEDS: SODIUM CHLORIDE 0.9% 1,000 ML IV SCH ×4 (00:17→20:17)
[2022-03-10 08:57] LABS: Basophils # (A) 0.04 X 10*3/uL (0.00-0.10); Basophils % (A) 0.4 %; Eosinophils # (A) 0.29 X 10*3/uL (0.04-0.35); Eosinophils % (A) 2.8 %; HCT 35.4 % (39.6-50.0); HGB 11.4 g/dL (13.0-17.0); Immature Grans, Automated 0.6 %; Lymphocytes # (A) 1.63 X 10*3/uL (0.90-5.00); Lymphocytes % (A) 15.6 %; MCHC 32.2 g/dL (32.0-37.0); MCV 93.2 fL (80.0-97.0); Monocytes # (A) 0.91 X 10*3/uL (0.20-1.00); Monocytes % (A) 8.7 %; NRBC Per 100 WBC 0 /100 WBCS (0.0-0.0); Neutrophils % (A) 71.9 %; Platelet Count 288 X 10*3/uL (140-440); RDW 15.3 % (11.5-14.5); WBC 10.43 X 10*3/uL (4.50-10.00)
[2022-03-10 09:18] LABS: African American GFR (CKD) 71.6 (60.0-200.0); Albumin 3.2 g/dL (3.8-4.9); Albumin/Globulin Ratio 1.03 (1.60-3.17); Anion Gap 9.4 mmol/L (10.00-18.00); BUN/Creat Ratio 15.45 Ratio (12.00-20.00); Calcium 8.6 mg/dL (8.7-10.3); Carbon Dioxide 26.6 mmol/L (20.0-27.5); Globulin 3.1 g/dL (1.6-3.3); Non-African American GFR(CKD) 61.8 (60.0-200.0); Potassium 3.9 mmol/L (3.5-5.5); Total Bilirubin 0.6 mg/dL (0.30-1.20); Total Protein 6.3 g/dL (6.2-8.2)
[2022-03-10] MEDS: VANCOMYCIN 1,750 MG in SODIUM CHLORIDE 0.9% 500 ML 500 ML IVPB SCH (12:56)
[2022-03-10 17:20] LABS: Glucose,Whole Blood 163 mg/dL (70-110)
[2022-03-10] MEDS: INSULIN ASPART (NovoLOG) 100 UNIT/ML VIAL SQ SCH ×2 (17:47→20:20)
[2022-03-10 20:17] LABS: Glucose,Whole Blood 216 mg/dL (70-110)
[2022-03-10] MEDS: glipiZIDE 10 MG TAB PO SCH (20:17)
[2022-03-10] MEDS: ATORVASTATIN 10 MG TAB PO SCH (20:17)
[2022-03-10] MEDS: metFORMIN 500 MG TAB PO SCH (20:17)
--- NOTE | 2022-03-10 23:18 | P.CONS ---
History of Present Illness - Reason for Consult Consult date: 03/10/22 Osteomyelitis Requesting physician: Cindy Jose - Chief Complaint Left fourth toe swelling and redness x few days - History of Present Illness Patient is a 81-year old male presented to the hospital for evaluation of worsening swelling and redness to the left fourth toe patient started having a problem with a left fourth toe about a month ago in January patient not very clear how it started however the patient mention has been going to the wound care center last seen on Sunday and was started on Keflex however the patient seem to have increasing swelling and redness of the left fourth toe and some foul-smelling drainage, with worsening swelling and redness swelling to the dorsal aspect of the left foot for the patient presented to hospital on arrival to the ER the patient was afebrile patient did have x-ray suggestive of left fourth toe distal phalanx osteomyelitis patient did have mild leukocytosis with left shift creatinine was normal lactic acid was elevated repeat is normal no exams are normal patient was started on vancomycin infectious disease was consulted for further management of antibiotic therapy Review of Systems Positive point has been mentioned in the HPI rest of the systems are negative Past Medical History Past Medical History: Diabetes Mellitus, Hyperlipidemia, Hypertension, Osteoarthritis (OA), Sleep Apnea/CPAP/BIPAP Additional Past Medical History / Comment(s): Hx. of Gout, uses C-PAP. 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 Surgery for Pilonidal cyst. Past Anesthesia/Blood Transfusion Reactions: No Reported Reaction Past Psychological History: No Psychological Hx Reported Past Alcohol Use History: None Reported Past Drug Use History: None Reported - Past Family History Mother Family Medical History: No Reported History Brother(s) Family Medical History: Cancer Additional Family Medical History / Comment(s): Skin cancer Medications and Allergies Home Medications Medication Instructions Recorded Confirmed Type Simvastatin [Zocor] 20 mg PO HS 07/24/16 03/09/22 History allopurinoL [Zyloprim] 300 mg PO DAILY 07/24/16 03/09/22 History sitaGLIPtin PHOS/metFORMIN HCL 1 tab PO BID 07/24/16 03/09/22 History [Janumet 50-1,000 mg Tablet] Furosemide [Lasix] 40 mg PO DAILY 01/09/22 03/09/22 History Tamsulosin [Flomax] 0.4 mg PO DAILY 01/09/22 03/09/22 History Cephalexin [Keflex] 500 mg PO TID 03/09/22 03/09/22 History glipiZIDE [Glucotrol XL] 10 mg PO BID 03/09/22 03/09/22 History Allergies Allergy/AdvReac Type Severity Reaction Status Date / Time No Known Allergies Allergy Verified 03/09/22 23:23 Physical Exam Vitals: Vital Signs Temp Pulse Resp BP Pulse Ox 03/10/22 06:11 97.9 F 88 18 111/67 95 03/10/22 01:29 98.9 F 87 20 123/76 95 03/09/22 14:38 98.1 F 90 16 106/59 97 GENERAL DESCRIPTION: Elderly male lying in bed, no distress. No tachypnea or accessory muscle of respiration use. HEENT: Shows Pallor , no scleral icterus. Oral mucous membrane is dry. No pharyngeal erythema or thrush NECK: Trachea central, no thyromegaly. LUNGS: Unlabored breathing. Clear to auscultation anteriorly. No wheeze or crackle. HEART: S1, S2, regular rate and rhythm. No loud murmur ABDOMEN: Soft, no tenderness , guarding or rigidity, no organomegaly EXTREMITIES: Left fourth toe is swollen right recent purulent drainage and foul- smelling drainage was cultured SKIN: No rash, no masses palpable. NEUROLOGICAL: The patient is awake, alert, oriented x3, mood and affect normal. Results CBC & Chem 7: 03/10/22 05:24 03/10/22 05:24 Labs: Abnormal Lab Results - Last 24 Hours (Table) 03/09/22 03/09/22 03/09/22 Range/Units 19:33 19:33 19:33 WBC 13.8 H (3.8-10.6) k/uL RBC (4.40-5.60) X 10*6/uL Hgb (13.0-17.0) g/dL Hct (39.6-50.0) % RDW (11.5-14.5) % Immature Gran # (0.00-0.04) X 10*3/uL Neutrophils # 9.8 H (1.3-7.7) k/uL Chloride 95 L (98-107) mmol/L Anion Gap (10.00-18.00) mmol/L BUN 21 H (9-20) mg/dL Glucose 223 H (74-99) mg/dL Plasma Lactic Acid Hari 2.8 H* (0.7-2.0) mmol/L Calcium (8.7-10.3) mg/dL ALT (10-49) U/L Alkaline Phosphatase 147 H (38-126) U/L Albumin (3.8-4.9) g/dL Albumin/Globulin Ratio (1.60-3.17) g/dL 03/10/22 03/10/22 Range/Units 05:24 05:24 WBC 10.43 H (3.8-10.6) k/uL RBC 3.80 L (4.40-5.60) X 10*6/uL Hgb 11.4 L (13.0-17.0) g/dL Hct 35.4 L (39.6-50.0) % RDW 15.3 H (11.5-14.5) % Immature Gran # 0.06 H (0.00-0.04) X 10*3/uL Neutrophils # (1.3-7.7) k/uL Chloride (98-107) mmol/L Anion Gap 9.40 L (10.00-18.00) mmol/L BUN (9-20) mg/dL Glucose 132 H (74-99) mg/dL Plasma Lactic Acid Hari (0.7-2.0) mmol/L Calcium 8.6 L (8.7-10.3) mg/dL ALT 8 L (10-49) U/L Alkaline Phosphatase (38-126) U/L Albumin 3.2 L (3.8-4.9) g/dL Albumin/Globulin Ratio 1.03 L (1.60-3.17) g/dL Assessment and Plan (1) Osteomyelitis Current Visit: Yes Status: Acute Code(s): M86.9 - OSTEOMYELITIS, UNSPECIFIED SNOMED Code(s): 68059700 Plan: 1patient with a left fourth toe diabetic foot infection started with an injury more than a month ago and apparently has been getting worse and did not respond to the oral Keflex possibly community associated MRSA versus a gram-negative infection 2-local wound culture has been obtained to guide further guide therapy 3-vascular surgery evaluation for possible debridement versus amputation 4vancomycin pharmacy to dose target trough of 15 while watching kidney function and vancomycin trough closely We will follow on clinical condition and cultures to further adjust medication if needed Thank you for this consultation will follow this patient along with you
[2022-03-11] MEDS: SODIUM CHLORIDE 0.9% 1,000 ML IV SCH ×3 (00:02→20:40)
[2022-03-11] MEDS: VANCOMYCIN 1,750 MG in SODIUM CHLORIDE 0.9% 500 ML 500 ML IVPB SCH ×2 (06:12→20:40)
[2022-03-11] MEDS: AMPICILLIN-SULBACTAM 3 GM in SODIUM CHLORIDE 0.9% 100 ML IVPB SCH ×5 (06:17→18:47)
[2022-03-11 07:09] LABS: Glucose,Whole Blood 78 mg/dL (70-110)
[2022-03-11 08:36] LABS: Basophils # (A) 0.04 X 10*3/uL (0.00-0.10); Basophils % (A) 0.4 %; Eosinophils # (A) 0.37 X 10*3/uL (0.04-0.35); Eosinophils % (A) 3.9 %; Immature Grans, Automated 0.4 %; Lymphocytes # (A) 1.69 X 10*3/uL (0.90-5.00); MCH 30.3 pg (27.0-32.0); MCHC 32.4 g/dL (32.0-37.0); MCV 93.7 fL (80.0-97.0); Mean Platelet Volume 11.7 fL (9.5-12.2); Monocytes # (A) 0.73 X 10*3/uL (0.20-1.00); Monocytes % (A) 7.8 %; NRBC Per 100 WBC 0 /100 WBCS (0.0-0.0); Neutrophils # (A) 6.52 X 10*3/uL (1.80-7.70); Neutrophils % (A) 69.5 %; Platelet Count 284 X 10*3/uL (140-440); RBC 3.63 X 10*6/uL (4.40-5.60); RDW 15.3 % (11.5-14.5); WBC 9.39 X 10*3/uL (4.50-10.00)
--- NOTE | 2022-03-11 08:51 | P.GSCN ---
History of Present Illness History of present illness: 81-year-old diabetic male patient came to the emergency room referred by his report chief mate patient has a left foot fourth toe draining pus and redness on the plantar and dorsal aspect of the foot patient has this problem going on for the past 1 month patient was treated with oral antibiotic has been admitted under care of infectious disease I was consulted for evaluation. Tabitha had a left foot second toe and amputated in the past Medical history history of diabetes Neck is supple Chest is clear good entry both lungs Abdomen soft nontender femorals are 1+ left foot fourth toe has infected for the past 1 month with drainage of foul odor smell this fluctuation noted and this open wound and also noted some redness on the plantar aspect and dorsal aspect of the foot patient white cell count is 13.8. Graft plan is patient is an IV antibiotic under care of infectious disease most likely this gentleman will need ray amputation of the left foot plantar fourth toe patient agrees we will discuss with infectious disease redness scheduled for surgery risk and complication discussed patient understands Past Medical History Past Medical History: Diabetes Mellitus, Hyperlipidemia, Hypertension, Osteoarthritis (OA), Sleep Apnea/CPAP/BIPAP Additional Past Medical History / Comment(s): Hx. of Gout, uses C-PAP. 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 Surgery for Pilonidal cyst. Past Anesthesia/Blood Transfusion Reactions: No Reported Reaction Past Psychological History: No Psychological Hx Reported Past Alcohol Use History: None Reported Past Drug Use History: None Reported - Past Family History Mother Family Medical History: No Reported History Brother(s) Family Medical History: Cancer Additional Family Medical History / Comment(s): Skin cancer Medications and Allergies Home Medications Medication Instructions Recorded Confirmed Type Simvastatin [Zocor] 20 mg PO HS 07/24/16 03/09/22 History allopurinoL [Zyloprim] 300 mg PO DAILY 07/24/16 03/09/22 History sitaGLIPtin PHOS/metFORMIN HCL 1 tab PO BID 07/24/16 03/09/22 History [Janumet 50-1,000 mg Tablet] Furosemide [Lasix] 40 mg PO DAILY 01/09/22 03/09/22 History Tamsulosin [Flomax] 0.4 mg PO DAILY 01/09/22 03/09/22 History Cephalexin [Keflex] 500 mg PO TID 03/09/22 03/09/22 History glipiZIDE [Glucotrol XL] 10 mg PO BID 03/09/22 03/09/22 History Allergies Allergy/AdvReac Type Severity Reaction Status Date / Time No Known Allergies Allergy Verified 03/09/22 23:23 Surgical - Exam Vital Signs Temp Pulse Resp BP Pulse Ox 98.1 F 90 16 106/59 97 03/09/22 14:38 03/09/22 14:38 03/09/22 14:38 03/09/22 14:38 03/09/22 14:38 Results - Labs 03/11/22 05:54 03/10/22 05:24 Abnormal Lab Results - Last 24 Hours (Table) 03/10/22 03/10/22 03/10/22 Range/Units 05:24 05:24 17:11 WBC 10.43 H (4.50-10.00) X 10*3/uL RBC 3.80 L (4.40-5.60) X 10*6/uL Hgb 11.4 L (13.0-17.0) g/dL Hct 35.4 L (39.6-50.0) % RDW 15.3 H (11.5-14.5) % Immature Gran # 0.06 H (0.00-0.04) X 10*3/uL Eosinophils # (0.04-0.35) X 10*3/uL Anion Gap 9.40 L (10.00-18.00) mmol/L Glucose 132 H (70-110) mg/dL POC Glucose (mg/dL) 163 H (70-110) mg/dL Calcium 8.6 L (8.7-10.3) mg/dL ALT 8 L (10-49) U/L Albumin 3.2 L (3.8-4.9) g/dL Albumin/Globulin Ratio 1.03 L (1.60-3.17) g/dL 03/10/22 03/11/22 Range/Units 20:16 05:54 WBC (4.50-10.00) X 10*3/uL RBC 3.63 L (4.40-5.60) X 10*6/uL Hgb 11.0 L (13.0-17.0) g/dL Hct 34.0 L (39.6-50.0) % RDW 15.3 H (11.5-14.5) % Immature Gran # (0.00-0.04) X 10*3/uL Eosinophils # 0.37 H (0.04-0.35) X 10*3/uL Anion Gap (10.00-18.00) mmol/L Glucose (70-110) mg/dL POC Glucose (mg/dL) 216 H (70-110) mg/dL Calcium (8.7-10.3) mg/dL ALT (10-49) U/L Albumin (3.8-4.9) g/dL Albumin/Globulin Ratio (1.60-3.17) g/dL Microbiology - Last 24 Hours (Table) 03/10/22 13:23 Gram Stain - Preliminary Toe - Left Fourth Wound Culture - Preliminary Diabetes panel 03/10/22 Range/Units 05:24 Sodium 138 (135-145) mmol/L Potassium 3.9 (3.5-5.5) mmol/L Chloride 102 (96-109) mmol/L Carbon Dioxide 26.6 (20.0-27.5) mmol/L BUN 17.0 (9.0-27.0) mg/dL Creatinine 1.1 (0.6-1.5) mg/dL Glucose 132 H (70-110) mg/dL Calcium 8.6 L (8.7-10.3) mg/dL AST 15 (14-35) U/L ALT 8 L (10-49) U/L Alkaline Phosphatase 101 (41-126) U/L Total Protein 6.3 (6.2-8.2) g/dL Albumin 3.2 L (3.8-4.9) g/dL Calcium panel 03/10/22 Range/Units 05:24 Calcium 8.6 L (8.7-10.3) mg/dL Albumin 3.2 L (3.8-4.9) g/dL Pituitary panel 03/10/22 Range/Units 05:24 Sodium 138 (135-145) mmol/L Potassium 3.9 (3.5-5.5) mmol/L Chloride 102 (96-109) mmol/L Carbon Dioxide 26.6 (20.0-27.5) mmol/L BUN 17.0 (9.0-27.0) mg/dL Creatinine 1.1 (0.6-1.5) mg/dL Glucose 132 H (70-110) mg/dL Calcium 8.6 L (8.7-10.3) mg/dL Adrenal panel 03/10/22 Range/Units 05:24 Sodium 138 (135-145) mmol/L Potassium 3.9 (3.5-5.5) mmol/L Chloride 102 (96-109) mmol/L Carbon Dioxide 26.6 (20.0-27.5) mmol/L BUN 17.0 (9.0-27.0) mg/dL Creatinine 1.1 (0.6-1.5) mg/dL Glucose 132 H (70-110) mg/dL Calcium 8.6 L (8.7-10.3) mg/dL Total Bilirubin 0.60 (0.30-1.20) mg/dL AST 15 (14-35) U/L ALT 8 L (10-49) U/L Alkaline Phosphatase 101 (41-126) U/L Total Protein 6.3 (6.2-8.2) g/dL Albumin 3.2 L (3.8-4.9) g/dL
[2022-03-11] MEDS: INSULIN ASPART (NovoLOG) 100 UNIT/ML VIAL SQ SCH ×4 (09:29→20:40)
[2022-03-11] MEDS: FUROSEMIDE 40 MG TAB PO SCH (09:30)
[2022-03-11] MEDS: TAMSULOSIN 0.4 MG CAP.ER.24H PO SCH (09:30)
[2022-03-11] MEDS: metFORMIN 500 MG TAB PO SCH ×2 (09:30→20:39)
[2022-03-11] MEDS: glipiZIDE 10 MG TAB PO SCH ×2 (09:30→20:39)
[2022-03-11] MEDS: LINAGLIPTIN 5 MG TABLET PO SCH (09:31)
[2022-03-11 09:32] LABS: African American GFR (CKD) 80.3 (60.0-200.0); Anion Gap 10.4 mmol/L (10.00-18.00); BUN/Creat Ratio 14.4 Ratio (12.00-20.00); Blood Urea Nitrogen 14.4 mg/dL (9.0-27.0); Calcium 8.7 mg/dL (8.7-10.3); Carbon Dioxide 24.6 mmol/L (20.0-27.5); Non-African American GFR(CKD) 69.3 (60.0-200.0)
[2022-03-11] MEDS: allopurinoL 300 MG TAB PO SCH (09:42)
[2022-03-11 12:05] LABS: Glucose,Whole Blood 194 mg/dL (70-110)
[2022-03-11 17:21] LABS: Glucose,Whole Blood 152 mg/dL (70-110)
--- NOTE | 2022-03-11 19:30 | P.HPIM ---
History of Present Illness H&P Date: 03/10/22 Chief Complaint: Infected toe 81-year-old male presenting with chief complaint of wound to the left fourth toe. Patient states wound initially started in January. Patient sees wound care, has been taking Keflex since Sunday. Reports wound has been worsening, there is discharge, redness, swelling, redness spreading up the foot. Patient has neuropathy and does not admit to much pain. Denies fever, chills, nausea, vomiting, loss of range of motion, weakness, chest pain, shortness of breath, leg pain. Blood work completed in ED today reveals a WBC of 10.4, hemoglobin of 11.4, platelet of 228; sodium 138, potassium 3.9, BUN/creatinine of 17/1.1; lactic acid of 2.8; blood glucose elevated at 223 Review of Systems REVIEW OF SYSTEMS: CONSTITUTIONAL: No fever, no malaise, no fatigue. HEENT: No recent visual problems or hearing problems. Denied any sore throat. CARDIOVASCULAR: No chest pain, orthopnea, PND, no palpitations, no syncope. PULMONARY: No shortness of breath, no cough, no hemoptysis. GASTROINTESTINAL: No diarrhea, no nausea, no vomiting, no abdominal pain. NEUROLOGICAL: No headaches, no weakness, no numbness. HEMATOLOGICAL: Denies any bleeding or petechiae. GENITOURINARY: Denies any burning micturition, frequency, or urgency. MUSCULOSKELETAL/RHEUMATOLOGICAL: Denies any joint pain, swelling, or any muscle pain. ENDOCRINE: Denies any polyuria or polydipsia. The rest of the 14-point review of systems is negative. Past Medical History Past Medical History: Diabetes Mellitus, Hyperlipidemia, Hypertension, Osteoarthritis (OA), Sleep Apnea/CPAP/BIPAP Additional Past Medical History / Comment(s): Hx. of Gout, uses C-PAP. 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 Surgery for Pilonidal cyst. Past Anesthesia/Blood Transfusion Reactions: No Reported Reaction Past Psychological History: No Psychological Hx Reported Past Alcohol Use History: None Reported Past Drug Use History: None Reported - Past Family History Mother Family Medical History: No Reported History Brother(s) Family Medical History: Cancer Additional Family Medical History / Comment(s): Skin cancer Medications and Allergies Home Medications Medication Instructions Recorded Confirmed Type Simvastatin [Zocor] 20 mg PO HS 07/24/16 03/09/22 History allopurinoL [Zyloprim] 300 mg PO DAILY 07/24/16 03/09/22 History sitaGLIPtin PHOS/metFORMIN HCL 1 tab PO BID 07/24/16 03/09/22 History [Janumet 50-1,000 mg Tablet] Furosemide [Lasix] 40 mg PO DAILY 01/09/22 03/09/22 History Tamsulosin [Flomax] 0.4 mg PO DAILY 01/09/22 03/09/22 History Cephalexin [Keflex] 500 mg PO TID 03/09/22 03/09/22 History glipiZIDE [Glucotrol XL] 10 mg PO BID 03/09/22 03/09/22 History Allergies Allergy/AdvReac Type Severity Reaction Status Date / Time No Known Allergies Allergy Verified 03/09/22 23:23 Physical Exam Vitals: Vital Signs Temp Pulse Resp BP Pulse Ox 03/10/22 06:11 97.9 F 88 18 111/67 95 03/10/22 01:29 98.9 F 87 20 123/76 95 03/09/22 14:38 98.1 F 90 16 106/59 97 GENERAL DESCRIPTION: Elderly male lying in bed, no distress. No tachypnea or accessory muscle of respiration use. HEENT: Shows Pallor , no scleral icterus. Oral mucous membrane is dry. No pharyn geal erythema or thrush NECK: Trachea central, no thyromegaly. LUNGS: Unlabored breathing. Clear to auscultation anteriorly. No wheeze or crackle. HEART: S1, S2, regular rate and rhythm. No loud murmur ABDOMEN: Soft, no tenderness , guarding or rigidity, no organomegaly EXTREMITIES: Left fourth toe is swollen right recent purulent drainage and foul- smelling drainage was cultured SKIN: No rash, no masses palpable. NEUROLOGICAL: The patient is awake, alert, oriented x3, mood and affect normal. Results CBC & Chem 7: 03/11/22 05:54 03/11/22 05:54 Labs: Abnormal Lab Results - Last 24 Hours (Table) 03/09/22 03/09/22 03/09/22 Range/Units 19:33 19:33 19:33 WBC 13.8 H (3.8-10.6) k/uL RBC (4.40-5.60) X 10*6/uL Hgb (13.0-17.0) g/dL Hct (39.6-50.0) % RDW (11.5-14.5) % Immature Gran # (0.00-0.04) X 10*3/uL Neutrophils # 9.8 H (1.3-7.7) k/uL Chloride 95 L (98-107) mmol/L Anion Gap (10.00-18.00) mmol/L BUN 21 H (9-20) mg/dL Glucose 223 H (74-99) mg/dL Plasma Lactic Acid Hari 2.8 H* (0.7-2.0) mmol/L Calcium (8.7-10.3) mg/dL ALT (10-49) U/L Alkaline Phosphatase 147 H (38-126) U/L Albumin (3.8-4.9) g/dL Albumin/Globulin Ratio (1.60-3.17) g/dL 03/10/22 03/10/22 Range/Units 05:24 05:24 WBC 10.43 H (3.8-10.6) k/uL RBC 3.80 L (4.40-5.60) X 10*6/uL Hgb 11.4 L (13.0-17.0) g/dL Hct 35.4 L (39.6-50.0) % RDW 15.3 H (11.5-14.5) % Immature Gran # 0.06 H (0.00-0.04) X 10*3/uL Neutrophils # (1.3-7.7) k/uL Chloride (98-107) mmol/L Anion Gap 9.40 L (10.00-18.00) mmol/L BUN (9-20) mg/dL Glucose 132 H (74-99) mg/dL Plasma Lactic Acid Hari (0.7-2.0) mmol/L Calcium 8.6 L (8.7-10.3) mg/dL ALT 8 L (10-49) U/L Alkaline Phosphatase (38-126) U/L Albumin 3.2 L (3.8-4.9) g/dL Albumin/Globulin Ratio 1.03 L (1.60-3.17) g/dL Assessment and Plan Assessment: 1. Osteomyelitis left fourth toe patient with a left fourth toe diabetic foot infection started with an injury more than a month ago and apparently has been getting worse and did not respond to the oral Keflex possibly community associated MRSA versus a gram-negative infection -local wound culture has been obtained to guide further guide therapy -vascular surgery evaluation for possible debridement versus amputation vancomycin pharmacy to dose target trough of 15 while watching kidney function and vancomycin trough closely 2. Diabetes mellitus; continue with home dose of glipizide, metformin and Tradjenta; monitor Accu-Cheks before meals and at bedtime with insulin sliding scale 3. Hypertension; Lasix 40 mg daily; currently not on any other antihypertensive therapy 4. Hyperlipidemia; Lipitor 10 mg by mouth daily at bedtime 5. Hyperuricemia/gout; allopurinol 300 mg daily; ibuprofen 400 mg every 6 hours 6. BPH; Flomax 0.4 mg daily DVT prophylaxis; SCDs CODE STATUS; full code
--- NOTE | 2022-03-11 19:32 | P.PN ---
Subjective Progress Note Date: 03/11/22 81-year old male presented to the hospital for evaluation of worsening swelling and redness to the left fourth toe patient started having a problem with a left fourth toe about a month ago in January patient not very clear how it started however the patient mention has been going to the wound care center last seen on Sunday and was started on Keflex however the patient seem to have increasing swelling and redness of the left fourth toe and some foul-smelling drainage, with worsening swelling and redness swelling to the dorsal aspect of the left foot for the patient presented to hospital on arrival to the ER the patient was afebrile patient did have x-ray suggestive of left fourth toe distal phalanx osteomyelitis patient did have mild leukocytosis with left shift creatinine was normal lactic acid was elevated repeat is normal no exams are normal patient was started on vancomycin infectious disease was consulted for further management of antibiotic therapy Objective - Vital Signs Vital signs: Vital Signs Temp 97.6 F 03/11/22 14:00 Pulse 84 03/11/22 14:00 Resp 19 03/11/22 14:00 BP 148/63 03/11/22 14:00 Pulse Ox 95 03/11/22 14:00 FiO2 Intake & Output 03/10/22 03/11/22 03/11/22 18:59 06:59 18:59 Intake Total 240 Balance 240 Weight 115.666 kg Intake: Oral 240 Other: Voiding Method Toilet # Voids 2 - Exam GENERAL DESCRIPTION: Elderly male lying in bed, no distress. No tachypnea or accessory muscle of respiration use. HEENT: Shows Pallor , no scleral icterus. Oral mucous membrane is dry. No pharyngeal erythema or thrush NECK: Trachea central, no thyromegaly. LUNGS: Unlabored breathing. Clear to auscultation anteriorly. No wheeze or crackle. HEART: S1, S2, regular rate and rhythm. No loud murmur ABDOMEN: Soft, no tenderness , guarding or rigidity, no organomegaly EXTREMITIES: Left fourth toe is swollen right recent purulent drainage and foul- smelling drainage was cultured SKIN: No rash, no masses palpable. NEUROLOGICAL: The patient is awake, alert, oriented x3, mood and affect normal. - Labs CBC & Chem 7: 03/11/22 05:54 03/11/22 05:54 Labs: Abnormal Lab Results - Last 24 Hours (Table) 03/10/22 03/10/22 03/11/22 Range/Units 17:11 20:16 05:54 RBC 3.63 L (4.40-5.60) X 10*6/uL Hgb 11.0 L (13.0-17.0) g/dL Hct 34.0 L (39.6-50.0) % RDW 15.3 H (11.5-14.5) % Eosinophils # 0.37 H (0.04-0.35) X 10*3/uL POC Glucose (mg/dL) 163 H 216 H (70-110) mg/dL 03/11/22 Range/Units 12:03 RBC (4.40-5.60) X 10*6/uL Hgb (13.0-17.0) g/dL Hct (39.6-50.0) % RDW (11.5-14.5) % Eosinophils # (0.04-0.35) X 10*3/uL POC Glucose (mg/dL) 194 H (70-110) mg/dL Microbiology - Last 24 Hours (Table) 03/10/22 13:23 Gram Stain - Preliminary Toe - Left Fourth Wound Culture - Preliminary Presumptive Staph aureus Assessment and Plan Assessment: 1. Osteomyelitis left fourth toe patient with a left fourth toe diabetic foot infection started with an injury more than a month ago and apparently has been getting worse and did not respond to the oral Keflex possibly community associated MRSA versus a gram-negative infection -local wound culture has been obtained to guide further guide therapy -vascular surgery evaluation for possible debridement versus amputation vancomycin pharmacy to dose target trough of 15 while watching kidney function and vancomycin trough closely 2. Diabetes mellitus; continue with home dose of glipizide, metformin and Tradjenta; monitor Accu-Cheks before meals and at bedtime with insulin sliding scale 3. Hypertension; Lasix 40 mg daily; currently not on any other antihypertensive therapy 4. Hyperlipidemia; Lipitor 10 mg by mouth daily at bedtime 5. Hyperuricemia/gout; allopurinol 300 mg daily; ibuprofen 400 mg every 6 hours 6. BPH; Flomax 0.4 mg daily DVT prophylaxis; SCDs CODE STATUS; full code
[2022-03-11] MEDS: ATORVASTATIN 10 MG TAB PO SCH (20:39)
[2022-03-11 21:01] LABS: Glucose,Whole Blood 154 mg/dL (70-110)
[2022-03-12] MEDS: AMPICILLIN-SULBACTAM 3 GM in SODIUM CHLORIDE 0.9% 100 ML IVPB SCH ×4 (01:15→20:42)
[2022-03-12] MEDS: SODIUM CHLORIDE 0.9% 1,000 ML IV SCH ×3 (05:32→20:43)
[2022-03-12 07:03] LABS: Glucose,Whole Blood 99 mg/dL (70-110)
[2022-03-12] MEDS: allopurinoL 300 MG TAB PO SCH (07:36)
[2022-03-12] MEDS: TAMSULOSIN 0.4 MG CAP.ER.24H PO SCH (07:36)
[2022-03-12] MEDS: FUROSEMIDE 40 MG TAB PO SCH (07:36)
[2022-03-12] MEDS: LINAGLIPTIN 5 MG TABLET PO SCH (07:36)
[2022-03-12] MEDS: INSULIN ASPART (NovoLOG) 100 UNIT/ML VIAL SQ SCH ×4 (08:57→21:03)
[2022-03-12] MEDS: glipiZIDE 10 MG TAB PO SCH ×2 (08:58→20:41)
[2022-03-12] MEDS: metFORMIN 500 MG TAB PO SCH ×2 (08:58→20:43)
[2022-03-12] MEDS ORDERED: LACTATED RINGERS 1,000 ML IV ONE (09:59)
[2022-03-12] MEDS ORDERED: PROPOFOL 10 MG/ML 20 ML VIAL IV ONE (10:37)
[2022-03-12] MEDS ORDERED: MIDAZOLAM 2 MG/2 ML VIAL ONE (10:37)
[2022-03-12] MEDS ORDERED: LIDOCAINE 1% INJ 10MG/ML (20 ML MDV) SQ ONE (10:49)
[2022-03-12] MEDS ORDERED: COLLAGENASE 250 UNIT/GM OINTMENT 30 GM TUBE TOPICAL ONE (11:00)
[2022-03-12 11:24] LABS: Glucose,Whole Blood 94 mg/dL (70-110)
[2022-03-12 11:31] LABS: African American GFR (CKD) 80.3 (60.0-200.0); BUN/Creat Ratio 12.3 Ratio (12.00-20.00); Blood Urea Nitrogen 12.3 mg/dL (9.0-27.0); Calcium 8.7 mg/dL (8.7-10.3); Non-African American GFR(CKD) 69.3 (60.0-200.0)
[2022-03-12 11:49] LABS: Basophils # (A) 0.06 X 10*3/uL (0.00-0.10); Basophils % (A) 0.6 %; Eosinophils # (A) 0.29 X 10*3/uL (0.04-0.35); Eosinophils % (A) 2.8 %; HCT 35.3 % (39.6-50.0); HGB 11.1 g/dL (13.0-17.0); Immature Grans, Automated 0.4 %; Lymphocytes # (A) 2.41 X 10*3/uL (0.90-5.00); Lymphocytes % (A) 23.2 %; MCH 29.2 pg (27.0-32.0); MCHC 31.4 g/dL (32.0-37.0); MCV 92.9 fL (80.0-97.0); Mean Platelet Volume 11.7 fL (9.5-12.2); Monocytes % (A) 7.7 %; NRBC Per 100 WBC 0 /100 WBCS (0.0-0.0); Neutrophils # (A) 6.77 X 10*3/uL (1.80-7.70); Neutrophils % (A) 65.3 %; Platelet Count 301 X 10*3/uL (140-440); RDW 15.4 % (11.5-14.5); WBC 10.37 X 10*3/uL (4.50-10.00)
[2022-03-12] MEDS ORDERED: SODIUM CHLORIDE 0.9% 900 ML IV ONE (11:49)
[2022-03-12 12:12] LABS: Glucose,Whole Blood 90 mg/dL (70-110)
--- NOTE | 2022-03-12 14:25 | OP ---
OPERATIVE REPORT PREOPERATIVE DIAGNOSIS: Wet gangrene of left foot fourth toe. POSTOPERATIVE DIAGNOSIS: Wet gangrene of left foot fourth toe. PROCEDURE PERFORMED: Ray amputation of the left foot fourth toe. DESCRIPTION OF PROCEDURE: This patient was brought to the operating room. This patient had an infected fourth toe for the past one month. The patient came with marked redness and drainage of pus from the fourth toe, and there is also infected callus on the plantar aspect of the foot. Under local IV sedation, an elliptical incision was made on the dorsal aspect of the foot, went circumferentially around the plantar aspect of the foot, deepened through skin fat and fascia. Tendons were divided on the dorsum and plantar aspect until we reached the metatarsophalangeal joint, and ligaments were divided. Then, the fourth toe was removed, which was sent for deep culture. Hemostasis was well controlled, and the wound was copiously irrigated with hydrogen peroxide and saline. The incision was closed, the subcutaneous tissue with 0 Vicryl, and skin was left open because of infected wet gangrene of the toe. Santyl cream was applied to the wound, and dressing applied. The patient tolerated the procedure well. The patient transferred to the recovery room in satisfactory condition. MMODL / IJN: [id number] /
[2022-03-12] MEDS: VANCOMYCIN 1,750 MG in SODIUM CHLORIDE 0.9% 500 ML 500 ML IVPB SCH (15:55)
[2022-03-12 17:21] LABS: Glucose,Whole Blood 140 mg/dL (70-110)
--- NOTE | 2022-03-12 18:30 | P.PN ---
Subjective Progress Note Date: 03/12/22 Principal diagnosis: Osteomyelitis left fourth toe Status post ray amputation of left fourth toe 03/12/2022 81-year old male presented to the hospital for evaluation of worsening swelling and redness to the left fourth toe patient started having a problem with a left fourth toe about a month ago in January patient not very clear how it started however the patient mention has been going to the wound care center last seen on Sunday and was started on Keflex however the patient seem to have increasing swelling and redness of the left fourth toe and some foul-smelling drainage, with worsening swelling and redness swelling to the dorsal aspect of the left foot for the patient presented to hospital on arrival to the ER the patient was afebrile patient did have x-ray suggestive of left fourth toe distal phalanx osteomyelitis patient did have mild leukocytosis with left shift creatinine was normal lactic acid was elevated repeat is normal no exams are normal patient was started on vancomycin infectious disease was consulted for further management of antibiotic therapy 03/12/2022 Patient is seen and evaluated in room at bedside; denies any complaints; reports optimal pain control Vital signs are stable temperature of 96.3, pulse 86, respiration 20 blood pressure of 97/62 and O2 saturation of 99% Blood work review stable CBC 10.3, hemoglobin of 11.1 and platelet count of 301; sodium 139, potassium 4.0, BUN/creatinine of 12.3/1.0 Patient is status post ray amputation of left fourth toe for osteomyelitis; deep tissue cultures are obtained; local wound care as recommended ID on board for further recommendations on final choice of antibiotics Objective - Vital Signs Vital signs: Vital Signs Temp 96.4 F L 03/12/22 11:55 Pulse 87 03/12/22 11:55 Resp 17 03/12/22 11:55 BP 95/60 03/12/22 11:55 Pulse Ox 98 03/12/22 11:55 FiO2 Intake & Output 03/11/22 03/12/22 03/12/22 18:59 06:59 18:59 Intake Total 0 900 Output Total 1305 Balance 0 -405 Weight 115.666 kg Intake: IV 900 Oral 0 Output: Urine 1300 Estimated Blood Loss 5 Other: Voiding Method Toilet Toilet # Voids 1 2 # Bowel Movements 1 - Exam GENERAL DESCRIPTION: Elderly male lying in bed, no distress. No tachypnea or accessory muscle of respiration use. HEENT: Shows Pallor , no scleral icterus. Oral mucous membrane is dry. No pharyngeal erythema or thrush NECK: Trachea central, no thyromegaly. LUNGS: Unlabored breathing. Clear to auscultation anteriorly. No wheeze or crackle. HEART: S1, S2, regular rate and rhythm. No loud murmur ABDOMEN: Soft, no tenderness , guarding or rigidity, no organomegaly EXTREMITIES: Left fourth toe is swollen right recent purulent drainage and foul- smelling drainage was cultured SKIN: No rash, no masses palpable. NEUROLOGICAL: The patient is awake, alert, oriented x3, mood and affect normal. - Labs CBC & Chem 7: 03/12/22 05:52 03/12/22 05:52 Labs: Abnormal Lab Results - Last 24 Hours (Table) 03/11/22 03/11/22 03/12/22 Range/Units 17:19 20:59 05:52 WBC 10.37 H (4.50-10.00) X 10*3/uL RBC 3.80 L (4.40-5.60) X 10*6/uL Hgb 11.1 L (13.0-17.0) g/dL Hct 35.3 L (39.6-50.0) % MCHC 31.4 L (32.0-37.0) g/dL RDW 15.4 H (11.5-14.5) % Carbon Dioxide (20.0-27.5) mmol/L POC Glucose (mg/dL) 152 H 154 H (70-110) mg/dL 03/12/22 Range/Units 05:52 WBC (4.50-10.00) X 10*3/uL RBC (4.40-5.60) X 10*6/uL Hgb (13.0-17.0) g/dL Hct (39.6-50.0) % MCHC (32.0-37.0) g/dL RDW (11.5-14.5) % Carbon Dioxide 28.0 H (20.0-27.5) mmol/L POC Glucose (mg/dL) (70-110) mg/dL Microbiology - Last 24 Hours (Table) 03/10/22 13:23 Gram Stain - Preliminary Toe - Left Fourth Wound Culture - Preliminary Presumptive Staph aureus Assessment and Plan Assessment: 1. Osteomyelitis left fourth toe patient with a left fourth toe diabetic foot infection started with an injury more than a month ago and apparently has been getting worse and did not respond to the oral Keflex possibly community associated MRSA versus a gram-negative infection -local wound culture has been obtained to guide further guide therapy -vascular surgery evaluation for possible debridement versus amputation vancomycin pharmacy to dose target trough of 15 while watching kidney function and vancomycin trough closely 2. Diabetes mellitus; continue with home dose of glipizide, metformin and Tradjenta; monitor Accu-Cheks before meals and at bedtime with insulin sliding scale 3. Hypertension; Lasix 40 mg daily; currently not on any other antihypertensive therapy 4. Hyperlipidemia; Lipitor 10 mg by mouth daily at bedtime 5. Hyperuricemia/gout; allopurinol 300 mg daily; ibuprofen 400 mg every 6 hours 6. BPH; Flomax 0.4 mg daily DVT prophylaxis; SCDs CODE STATUS; full code
[2022-03-12] MEDS: ATORVASTATIN 10 MG TAB PO SCH (20:43)
[2022-03-12 21:14] LABS: Glucose,Whole Blood 200 mg/dL (70-110)
--- NOTE | 2022-03-12 22:21 | P.PN ---
Subjective Progress Note Date: 03/11/22 Principal diagnosis: Left fourth toe gangrene Patient is a 81-year-old male with a past medical history significant for diabetes mellitus, presenting to the hospital with left fourth toe gangrene and diabetic foot infection in this patient who is status post debridement of the wound this morning by vascular surgery. On today's evaluation that is 03/11/2022, the patient denies having any fever or chills patient denies pain to his left fourth toe area patient denies having any chest pain shortness of breath or cough no abdominal pain no diarrhea Objective - Vital Signs Vital signs: Vital Signs Temp 97.6 F 03/11/22 14:00 Pulse 84 03/11/22 14:00 Resp 19 03/11/22 14:00 BP 148/63 03/11/22 14:00 Pulse Ox 95 03/11/22 14:00 FiO2 Intake & Output 03/10/22 03/11/22 03/11/22 18:59 06:59 18:59 Intake Total 240 Balance 240 Weight 115.666 kg Intake: Oral 240 Other: Voiding Method Toilet # Voids 2 - Exam GENERAL DESCRIPTION: An elderly male lying in bed in no distress RESPIRATORY SYSTEM: Unlabored breathing , decreased breath sounds at bases HEART: S1 S2 regular rate and rhythm , ABDOMEN: Soft , no tenderness EXTREMITIES: Left fourth toe is currently dressed no drainage on the dressing - Labs CBC & Chem 7: 03/12/22 05:52 03/12/22 05:52 Labs: Abnormal Lab Results - Last 24 Hours (Table) 03/10/22 03/10/22 03/11/22 Range/Units 17:11 20:16 05:54 RBC 3.63 L (4.40-5.60) X 10*6/uL Hgb 11.0 L (13.0-17.0) g/dL Hct 34.0 L (39.6-50.0) % RDW 15.3 H (11.5-14.5) % Eosinophils # 0.37 H (0.04-0.35) X 10*3/uL POC Glucose (mg/dL) 163 H 216 H (70-110) mg/dL 03/11/22 Range/Units 12:03 RBC (4.40-5.60) X 10*6/uL Hgb (13.0-17.0) g/dL Hct (39.6-50.0) % RDW (11.5-14.5) % Eosinophils # (0.04-0.35) X 10*3/uL POC Glucose (mg/dL) 194 H (70-110) mg/dL Microbiology - Last 24 Hours (Table) 03/10/22 13:23 Gram Stain - Preliminary Toe - Left Fourth Wound Culture - Preliminary Presumptive Staph aureus Assessment and Plan (1) Osteomyelitis Current Visit: Yes Status: Acute Code(s): M86.9 - OSTEOMYELITIS, UNSPECIFIED SNOMED Code(s): 06436325 Plan: 1patient with a left fourth toe diabetic foot infection started with an injury more than a month ago and apparently has been getting worse and did not respond to the oral Keflex possibly community associated MRSA versus a gram-negative infection 2-local wound culture has been obtained to guide further guide therapy 3-vascular surgery has evaluated the patient is status post debridement and planning for amputation tomorrow morning 4patient will continue vancomycin pharmacy to dose target trough of 15 while watching kidney function and vancomycin trough closely along with Unasyn W Time with Patient: Less than 30
--- NOTE | 2022-03-12 22:23 | P.PN ---
Subjective Progress Note Date: 03/12/22 Principal diagnosis: Left fourth toe gangrene Patient is a 81-year-old male with a past medical history significant for diabetes mellitus, presenting to the hospital with left fourth toe gangrene and diabetic foot infection in this patient who is status post debridement of the wound followed by amputation of the left fourth toe completed 03/12/2022 On today's evaluation that is 03/12/2022, the patient continues to be afebrile, patient denies pain to his left fourth toe amputation site, patient denies having any chest pain shortness of breath or cough no abdominal pain no diarrhea Objective - Vital Signs Vital signs: Vital Signs Temp 96.3 F L 03/12/22 14:00 Pulse 90 03/12/22 15:55 Resp 20 03/12/22 14:00 BP 131/80 03/12/22 15:55 Pulse Ox 96 03/12/22 15:55 FiO2 Intake & Output 03/11/22 03/12/22 03/12/22 18:59 06:59 18:59 Intake Total 0 900 Output Total 3255 Balance 0 -2355 Weight 115.666 kg Intake: IV 900 Oral 0 Output: Urine 3250 Estimated Blood Loss 5 Other: Voiding Method Toilet Toilet # Voids 1 2 # Bowel Movements 1 - Exam GENERAL DESCRIPTION: An elderly male lying in bed in no distress RESPIRATORY SYSTEM: Unlabored breathing , decreased breath sounds at bases HEART: S1 S2 regular rate and rhythm , ABDOMEN: Soft , no tenderness EXTREMITIES: Left fourth toe amputation site is currently dressed no drainage on the dressing - Labs CBC & Chem 7: 03/12/22 05:52 03/12/22 05:52 Labs: Abnormal Lab Results - Last 24 Hours (Table) 03/11/22 03/12/22 03/12/22 Range/Units 20:59 05:52 05:52 WBC 10.37 H (4.50-10.00) X 10*3/uL RBC 3.80 L (4.40-5.60) X 10*6/uL Hgb 11.1 L (13.0-17.0) g/dL Hct 35.3 L (39.6-50.0) % MCHC 31.4 L (32.0-37.0) g/dL RDW 15.4 H (11.5-14.5) % Carbon Dioxide 28.0 H (20.0-27.5) mmol/L POC Glucose (mg/dL) 154 H (70-110) mg/dL 03/12/22 Range/Units 17:20 WBC (4.50-10.00) X 10*3/uL RBC (4.40-5.60) X 10*6/uL Hgb (13.0-17.0) g/dL Hct (39.6-50.0) % MCHC (32.0-37.0) g/dL RDW (11.5-14.5) % Carbon Dioxide (20.0-27.5) mmol/L POC Glucose (mg/dL) 140 H (70-110) mg/dL Microbiology - Last 24 Hours (Table) 03/10/22 13:23 Gram Stain - Final Toe - Left Fourth Wound Culture - Final Staphylococcus aureus Assessment and Plan (1) Osteomyelitis Current Visit: Yes Status: Acute Code(s): M86.9 - OSTEOMYELITIS, UNSPECIFIED SNOMED Code(s): 95430155 Plan: 1patient with a left fourth toe diabetic foot infection started with an injury more than a month ago and apparently has been getting worse and did not respond to the oral Keflex possibly community associated MRSA versus a gram-negative infection 2-local wound culture has been obtained which are currently growing MSSA 3-vascular surgery has evaluated the patient is status post debridement followed by amputation completed this morning 4we will discontinue the vancomycin and continue the patient on Unasyn Time with Patient: Less than 30
[2022-03-13] MEDS: AMPICILLIN-SULBACTAM 3 GM in SODIUM CHLORIDE 0.9% 100 ML IVPB SCH ×5 (00:42→23:38)
[2022-03-13] MEDS: SODIUM CHLORIDE 0.9% 1,000 ML IV SCH ×3 (00:43→17:59)
[2022-03-13] MEDS ORDERED: VANCOMYCIN TROUGH DUE 1 EACH MISC MISCELLANE ONE (04:00)
[2022-03-13 07:08] LABS: Glucose,Whole Blood 105 mg/dL (70-110)
[2022-03-13] MEDS: INSULIN ASPART (NovoLOG) 100 UNIT/ML VIAL SQ SCH ×4 (07:38→20:40)
[2022-03-13] MEDS: metFORMIN 500 MG TAB PO SCH ×2 (08:20→20:44)
[2022-03-13] MEDS: LINAGLIPTIN 5 MG TABLET PO SCH (08:20)
[2022-03-13] MEDS: TAMSULOSIN 0.4 MG CAP.ER.24H PO SCH (08:20)
[2022-03-13] MEDS: glipiZIDE 10 MG TAB PO SCH ×2 (08:20→20:44)
[2022-03-13] MEDS: allopurinoL 300 MG TAB PO SCH (08:20)
[2022-03-13] MEDS: FUROSEMIDE 40 MG TAB PO SCH (08:20)
[2022-03-13 09:14] LABS: Basophils # (A) 0.04 X 10*3/uL (0.00-0.10); Basophils % (A) 0.4 %; Eosinophils # (A) 0.14 X 10*3/uL (0.04-0.35); Eosinophils % (A) 1.4 %; HCT 33.9 % (39.6-50.0); HGB 10.9 g/dL (13.0-17.0); Immature Grans, Automated 0.4 %; Lymphocytes # (A) 1.59 X 10*3/uL (0.90-5.00); MCH 29.9 pg (27.0-32.0); MCHC 32.2 g/dL (32.0-37.0); MCV 93.1 fL (80.0-97.0); Mean Platelet Volume 11.8 fL (9.5-12.2); Monocytes # (A) 0.76 X 10*3/uL (0.20-1.00); Monocytes % (A) 7.7 %; NRBC Per 100 WBC 0 /100 WBCS (0.0-0.0); Neutrophils # (A) 7.35 X 10*3/uL (1.80-7.70); Neutrophils % (A) 74.1 %; Platelet Count 276 X 10*3/uL (140-440); RBC 3.64 X 10*6/uL (4.40-5.60); RDW 15.4 % (11.5-14.5); WBC 9.92 X 10*3/uL (4.50-10.00)
[2022-03-13 10:19] LABS: African American GFR (CKD) 75.7 (60.0-200.0); Anion Gap 11.6 mmol/L (10.00-18.00); Blood Urea Nitrogen 12.6 mg/dL (9.0-27.0); Calcium 8.6 mg/dL (8.7-10.3); Carbon Dioxide 25.7 mmol/L (20.0-27.5); Non-African American GFR(CKD) 65.3 (60.0-200.0); Potassium 3.8 mmol/L (3.5-5.5)
[2022-03-13 12:14] LABS: Glucose,Whole Blood 113 mg/dL (70-110)
[2022-03-13 16:47] LABS: Glucose,Whole Blood 171 mg/dL (70-110)
[2022-03-13 20:30] LABS: Glucose,Whole Blood 144 mg/dL (70-110)
[2022-03-13] MEDS: ATORVASTATIN 10 MG TAB PO SCH (20:44)
--- NOTE | 2022-03-13 21:12 | P.PN ---
Subjective 81-year old male presented to the hospital for evaluation of worsening swelling and redness to the left fourth toe patient started having a problem with a left fourth toe about a month ago in January patient not very clear how it started however the patient mention has been going to the wound care center last seen on Sunday and was started on Keflex however the patient seem to have increasing swelling and redness of the left fourth toe and some foul-smelling drainage, with worsening swelling and redness swelling to the dorsal aspect of the left foot for the patient presented to hospital on arrival to the ER the patient was afebrile patient did have x-ray suggestive of left fourth toe distal phalanx osteomyelitis patient did have mild leukocytosis with left shift creatinine was normal lactic acid was elevated repeat is normal no exams are normal patient was started on vancomycin infectious disease was consulted for further management of antibiotic therapy 03/12/2022 Patient is seen and evaluated in room at bedside; denies any complaints; reports optimal pain control Vital signs are stable temperature of 96.3, pulse 86, respiration 20 blood pressure of 97/62 and O2 saturation of 99% Blood work review stable CBC 10.3, hemoglobin of 11.1 and platelet count of 301; sodium 139, potassium 4.0, BUN/creatinine of 12.3/1.0 Patient is status post ray amputation of left fourth toe for osteomyelitis; deep tissue cultures are obtained; local wound care as recommended ID on board for further recommendations on final choice of antibiotics 03/13/2022 Patient is status post debridement and amputation yesterday. Today patient is denying any other symptoms He remains on Unasyn for MSSA Patient is eating well, hemodynamically stable and creatinine stable. We'll discontinue IV fluids We'll ask for PT/OT evaluation Objective - Vital Signs Vital signs: Vital Signs Temp 97.7 F 03/13/22 08:00 Pulse 87 03/13/22 08:00 Resp 18 03/13/22 08:00 BP 128/71 03/13/22 08:00 Pulse Ox 98 03/13/22 08:00 FiO2 Intake & Output 03/12/22 03/13/22 03/13/22 18:59 06:59 18:59 Intake Total 900 200 Output Total 4305 125 1075 Balance -3405 -125 -875 Weight 115.666 kg Intake: IV 900 Oral 200 Output: Urine 4300 125 1075 Estimated Blood Loss 5 Other: Voiding Method Toilet Urinal Urinal # Voids 1 - Exam GENERAL: The patient is alert and oriented x3, not in any acute distress. Well developed, well nourished. HEENT: Pupils are round and equally reacting to light. EOMI. No scleral icterus. No conjunctival pallor. Normocephalic, atraumatic. No pharyngeal erythema. No thyromegaly. CARDIOVASCULAR: S1 and S2 present. No murmurs, rubs, or gallops. PULMONARY: Chest is clear to auscultation, no wheezing or crackles. ABDOMEN: Soft, nontender, nondistended, normoactive bowel sounds. No palpable organomegaly. MUSCULOSKELETAL: No joint swelling or deformity. -EXTREMITIES: No cyanosis, clubbing, or pedal edema. Left foot in a dressing NEUROLOGICAL: Gross neurological examination did not reveal any focal deficits. SKIN: No rashes. no petechiae. - Labs CBC & Chem 7: 03/13/22 03:48 03/13/22 03:48 Labs: Abnormal Lab Results - Last 24 Hours (Table) 03/12/22 03/12/22 03/13/22 Range/Units 17:20 21:12 03:48 RBC 3.64 L (4.40-5.60) X 10*6/uL Hgb 10.9 L (13.0-17.0) g/dL Hct 33.9 L (39.6-50.0) % RDW 15.4 H (11.5-14.5) % Glucose (70-110) mg/dL POC Glucose (mg/dL) 140 H 200 H (70-110) mg/dL Calcium (8.7-10.3) mg/dL 03/13/22 03/13/22 Range/Units 03:48 12:12 RBC (4.40-5.60) X 10*6/uL Hgb (13.0-17.0) g/dL Hct (39.6-50.0) % RDW (11.5-14.5) % Glucose 150 H (70-110) mg/dL POC Glucose (mg/dL) 113 H (70-110) mg/dL Calcium 8.6 L (8.7-10.3) mg/dL Microbiology - Last 24 Hours (Table) 03/12/22 10:55 Anaerobic Culture - Preliminary Other - Other 03/12/22 10:55 Tissue Culture - Preliminary Other - Other 03/10/22 13:23 Gram Stain - Final Toe - Left Fourth Wound Culture - Final Staphylococcus aureus Assessment and Plan Assessment: 1. Osteomyelitis left fourth and fifth toe -Status post amputation of the fourth toe with local wound debridement on b y vascular surgery team -local wound culture has been obtained to guide further guide therapy -Continue with antibiotic per ID team, currently on Unasyn for MSSA 2. Diabetes mellitus; continue with home dose of glipizide, metformin and Tradjenta; monitor Accu-Cheks before meals and at bedtime with insulin sliding scale 3. Hypertension; Lasix 40 mg daily; currently not on any other antihypertensive therapy 4. Hyperlipidemia; Lipitor 10 mg by mouth daily at bedtime 5. Hyperuricemia/gout; allopurinol 300 mg daily; ibuprofen 400 mg every 6 hours 6. BPH; Flomax 0.4 mg daily DVT prophylaxis; SCDs CODE STATUS; full code
[2022-03-14] MEDS: AMPICILLIN-SULBACTAM 3 GM in SODIUM CHLORIDE 0.9% 100 ML IVPB SCH ×4 (05:39→23:53)
[2022-03-14 07:20] LABS: Glucose,Whole Blood 86 mg/dL (70-110)
--- NOTE | 2022-03-14 08:45 | P.PN ---
Progress Note - Text 81-year-old gentleman patient came with wet gangrene of the left foot fourth toe patient went for ray amputation of the left foot fourth toe today with change of dressing base of the wound is clean no discharge noted culture came back as a staph aureus patient is on IV antibiotic under care of infectious disease we have changed the dressing with the Sentell cream which be changed on daily basis
[2022-03-14] MEDS: INSULIN ASPART (NovoLOG) 100 UNIT/ML VIAL SQ SCH ×3 (09:36→20:48)
[2022-03-14] MEDS: TAMSULOSIN 0.4 MG CAP.ER.24H PO SCH (10:35)
[2022-03-14] MEDS: glipiZIDE 10 MG TAB PO SCH ×2 (10:35→21:17)
[2022-03-14] MEDS: LINAGLIPTIN 5 MG TABLET PO SCH (10:36)
[2022-03-14] MEDS: allopurinoL 300 MG TAB PO SCH (10:36)
[2022-03-14] MEDS: FUROSEMIDE 40 MG TAB PO SCH (10:36)
[2022-03-14] MEDS: metFORMIN 500 MG TAB PO SCH ×2 (10:36→21:17)
[2022-03-14 12:02] LABS: Glucose,Whole Blood 111 mg/dL (70-110)
--- NOTE | 2022-03-14 12:30 | P.PN ---
Subjective 81-year old male presented to the hospital for evaluation of worsening swelling and redness to the left fourth toe patient started having a problem with a left fourth toe about a month ago in January patient not very clear how it started however the patient mention has been going to the wound care center last seen on Sunday and was started on Keflex however the patient seem to have increasing swelling and redness of the left fourth toe and some foul-smelling drainage, with worsening swelling and redness swelling to the dorsal aspect of the left foot for the patient presented to hospital on arrival to the ER the patient was afebrile patient did have x-ray suggestive of left fourth toe distal phalanx osteomyelitis patient did have mild leukocytosis with left shift creatinine was normal lactic acid was elevated repeat is normal no exams are normal patient was started on vancomycin infectious disease was consulted for further management of antibiotic therapy 03/12/2022 Patient is seen and evaluated in room at bedside; denies any complaints; reports optimal pain control Vital signs are stable temperature of 96.3, pulse 86, respiration 20 blood pressure of 97/62 and O2 saturation of 99% Blood work review stable CBC 10.3, hemoglobin of 11.1 and platelet count of 301; sodium 139, potassium 4.0, BUN/creatinine of 12.3/1.0 Patient is status post ray amputation of left fourth toe for osteomyelitis; deep tissue cultures are obtained; local wound care as recommended ID on board for further recommendations on final choice of antibiotics 03/13/2022 Patient is status post debridement and amputation yesterday. Today patient is denying any other symptoms He remains on Unasyn for MSSA Patient is eating well, hemodynamically stable and creatinine stable. We'll discontinue IV fluids We'll ask for PT/OT evaluation 03/14/2022 Patient generally is doing well, no new symptoms. This patient glucose is controlled He remains on Unasyn pending final tissue culture results Physical therapy evaluation Objective - Vital Signs Vital signs: Vital Signs Temp 98.4 F 03/14/22 07:26 Pulse 90 03/14/22 08:00 Resp 18 03/14/22 08:00 BP 149/66 03/14/22 07:26 Pulse Ox 95 03/14/22 07:26 FiO2 Intake & Output 03/13/22 03/14/22 03/14/22 18:59 06:59 18:59 Intake Total 680 Output Total 2350 725 Balance -5040 725 Intake: Oral 680 Output: Urine 2350 725 Other: Voiding Method Urinal Urinal Toilet # Voids 0 - Exam GENERAL: The patient is alert and oriented x3, not in any acute distress. Well developed, well nourished. HEENT: Pupils are round and equally reacting to light. EOMI. No scleral icterus. No conjunctival pallor. Normocephalic, atraumatic. No pharyngeal erythema. No thyromegaly. CARDIOVASCULAR: S1 and S2 present. No murmurs, rubs, or gallops. PULMONARY: Chest is clear to auscultation, no wheezing or crackles. ABDOMEN: Soft, nontender, nondistended, normoactive bowel sounds. No palpable organomegaly. MUSCULOSKELETAL: No joint swelling or deformity. -EXTREMITIES: No cyanosis, clubbing, or pedal edema. Left foot in a dressing NEUROLOGICAL: Gross neurological examination did not reveal any focal deficits. SKIN: No rashes. no petechiae. - Labs CBC & Chem 7: 03/13/22 03:48 03/13/22 03:48 Labs: Abnormal Lab Results - Last 24 Hours (Table) 03/13/22 03/13/22 03/13/22 Range/Units 12:12 16:46 20:28 POC Glucose (mg/dL) 113 H 171 H 144 H (70-110) mg/dL Microbiology - Last 24 Hours (Table) 03/12/22 10:55 Gram Stain - Preliminary Other - Other Tissue Culture - Preliminary 03/12/22 10:55 Anaerobic Culture - Preliminary Other - Other Assessment and Plan Assessment: 1. Osteomyelitis left fourth and fifth toe -Status post amputation of the fourth toe with local wound debridement on by vascular surgery team -local wound culture has been obtained to guide further guide therapy -Continue with antibiotic per ID team, currently on Unasyn for MSSA 2. Diabetes mellitus; continue with home dose of glipizide, metformin and Tradjenta; monitor Accu-Cheks before meals and at bedtime with insulin sliding scale 3. Hypertension; Lasix 40 mg daily; currently not on any other antihypertensive therapy 4. Hyperlipidemia; Lipitor 10 mg by mouth daily at bedtime 5. Hyperuricemia/gout; allopurinol 300 mg daily; ibuprofen 400 mg every 6 hours 6. BPH; Flomax 0.4 mg daily DVT prophylaxis; SCDs CODE STATUS; full code
[2022-03-14 19:11] LABS: Glucose,Whole Blood 132 mg/dL (70-110)
[2022-03-14 20:31] LABS: Glucose,Whole Blood 134 mg/dL (70-110)
[2022-03-14] MEDS: ATORVASTATIN 10 MG TAB PO SCH (21:17)
[2022-03-15] MEDS: AMPICILLIN-SULBACTAM 3 GM in SODIUM CHLORIDE 0.9% 100 ML IVPB SCH ×4 (05:12→23:09)
[2022-03-15 07:19] LABS: Glucose,Whole Blood 80 mg/dL (70-110)
[2022-03-15] MEDS: allopurinoL 300 MG TAB PO SCH (09:00)
[2022-03-15] MEDS: TAMSULOSIN 0.4 MG CAP.ER.24H PO SCH (09:00)
[2022-03-15] MEDS: LINAGLIPTIN 5 MG TABLET PO SCH (09:00)
[2022-03-15] MEDS: glipiZIDE 10 MG TAB PO SCH ×2 (09:00→21:33)
[2022-03-15] MEDS: INSULIN ASPART (NovoLOG) 100 UNIT/ML VIAL SQ SCH ×4 (09:00→21:32)
[2022-03-15] MEDS: FUROSEMIDE 40 MG TAB PO SCH (09:00)
[2022-03-15] MEDS: metFORMIN 500 MG TAB PO SCH ×2 (09:01→21:33)
[2022-03-15 12:33] LABS: Glucose,Whole Blood 121 mg/dL (70-110)
[2022-03-15 14:30] VITALS: BMI 33.6
--- NOTE | 2022-03-15 16:45 | P.PN ---
Subjective 81-year old male presented to the hospital for evaluation of worsening swelling and redness to the left fourth toe patient started having a problem with a left fourth toe about a month ago in January patient not very clear how it started however the patient mention has been going to the wound care center last seen on Sunday and was started on Keflex however the patient seem to have increasing swelling and redness of the left fourth toe and some foul-smelling drainage, with worsening swelling and redness swelling to the dorsal aspect of the left foot for the patient presented to hospital on arrival to the ER the patient was afebrile patient did have x-ray suggestive of left fourth toe distal phalanx osteomyelitis patient did have mild leukocytosis with left shift creatinine was normal lactic acid was elevated repeat is normal no exams are normal patient was started on vancomycin infectious disease was consulted for further management of antibiotic therapy 03/12/2022 Patient is seen and evaluated in room at bedside; denies any complaints; reports optimal pain control Vital signs are stable temperature of 96.3, pulse 86, respiration 20 blood pressure of 97/62 and O2 saturation of 99% Blood work review stable CBC 10.3, hemoglobin of 11.1 and platelet count of 301; sodium 139, potassium 4.0, BUN/creatinine of 12.3/1.0 Patient is status post ray amputation of left fourth toe for osteomyelitis; deep tissue cultures are obtained; local wound care as recommended ID on board for further recommendations on final choice of antibiotics 03/13/2022 Patient is status post debridement and amputation yesterday. Today patient is denying any other symptoms He remains on Unasyn for MSSA Patient is eating well, hemodynamically stable and creatinine stable. We'll discontinue IV fluids We'll ask for PT/OT evaluation 03/14/2022 Patient generally is doing well, no new symptoms. This patient glucose is controlled He remains on Unasyn pending final tissue culture results Physical therapy evaluation 2021 Patient clinically stable Continue with Unasyn while pending for final results of the tissue culture, currently showing presumptive staph, and diphtheroids species. Physical therapist recommended home health clear which is ordered Objective - Vital Signs Vital signs: Vital Signs Temp 98.2 F 03/15/22 07:28 Pulse 85 03/15/22 07:28 Resp 18 03/15/22 07:28 BP 124/73 03/15/22 07:28 Pulse Ox 96 03/15/22 07:28 FiO2 Intake & Output 03/14/22 03/15/22 03/15/22 18:59 06:59 18:59 Intake Total 100 240 Balance 100 240 Intake: Intake, IV Titration 100 Amount Ampicillin-Sulbactam 3 gm 100 In Sodium Chloride 0.9% 100 ml @ 200 mls/hr IVPB Q6HR [facility] Rx#:[id number] Oral 240 Other: Voiding Method Toilet Toilet Urinal # Voids 300 - Exam GENERAL: The patient is alert and oriented x3, not in any acute distress. Well developed, well nourished. HEENT: Pupils are round and equally reacting to light. EOMI. No scleral icterus. No conjunctival pallor. Normocephalic, atraumatic. No pharyngeal erythema. No thyromegaly. CARDIOVASCULAR: S1 and S2 present. No murmurs, rubs, or gallops. PULMONARY: Chest is clear to auscultation, no wheezing or crackles. ABDOMEN: Soft, nontender, nondistended, normoactive bowel sounds. No palpable organomegaly. MUSCULOSKELETAL: No joint swelling or deformity. -EXTREMITIES: No cyanosis, clubbing, or pedal edema. Left foot in a dressing NEUROLOGICAL: Gross neurological examination did not reveal any focal deficits. SKIN: No rashes. no petechiae. - Labs CBC & Chem 7: 03/13/22 03:48 03/13/22 03:48 Labs: Abnormal Lab Results - Last 24 Hours (Table) 03/14/22 03/14/22 03/14/22 Range/Units 11:53 16:59 20:30 POC Glucose (mg/dL) 111 H 132 H 134 H (70-110) mg/dL Microbiology - Last 24 Hours (Table) 03/12/22 10:55 Gram Stain - Preliminary Other - Other Tissue Culture - Preliminary Presumptive Staph aureus Coagulase Negative Staph Diphtheroid species Assessment and Plan Assessment: 1. Osteomyelitis left fourth and fifth toe -Status post amputation of the fourth toe with local wound debridement on by vascular surgery team -local wound culture has been obtained to guide further guide therapy -Continue with antibiotic per ID team, currently on Unasyn for MSSA 2. Diabetes mellitus; continue with home dose of glipizide, metformin and Tradjenta; monitor Accu-Cheks before meals and at bedtime with insulin sliding scale 3. Hypertension; Lasix 40 mg daily; currently not on any other antihypertensive therapy 4. Hyperlipidemia; Lipitor 10 mg by mouth daily at bedtime 5. Hyperuricemia/gout; allopurinol 300 mg daily; ibuprofen 400 mg every 6 hours 6. BPH; Flomax 0.4 mg daily DVT prophylaxis; SCDs CODE STATUS; full code
[2022-03-15 17:30] LABS: Glucose,Whole Blood 129 mg/dL (70-110)
[2022-03-15 19:43] LABS: Glucose,Whole Blood 162 mg/dL (70-110)
[2022-03-15] MEDS: ATORVASTATIN 10 MG TAB PO SCH (21:33)
--- NOTE | 2022-03-16 03:26 | PN ---
PROGRESS NOTE The patient came with wet gangrene of the left foot fourth toe. We did the ray amputation. Culture came back as Staph aureus. The patient is under the care of Infectious Disease. We will be using Santyl cream. Today, I have changed the dressing. The patient going home today on Santyl cream. He may need excision of the head of the metatarsal bone. I will see him back in my office on Sunday. Continue with Santyl cream. Discussed with Dr. Rodriguez. MMODL / VALENTINN: [id number] /
[2022-03-16] MEDS: AMPICILLIN-SULBACTAM 3 GM in SODIUM CHLORIDE 0.9% 100 ML IVPB SCH ×4 (06:11→23:17)
[2022-03-16 07:07] LABS: Glucose,Whole Blood 68 mg/dL (70-110)
[2022-03-16 07:34] LABS: Glucose,Whole Blood 70 mg/dL (70-110)
[2022-03-16] MEDS: INSULIN ASPART (NovoLOG) 100 UNIT/ML VIAL SQ SCH ×4 (09:14→21:14)
[2022-03-16] MEDS: allopurinoL 300 MG TAB PO SCH (09:25)
[2022-03-16] MEDS: FUROSEMIDE 40 MG TAB PO SCH (09:25)
[2022-03-16] MEDS: TAMSULOSIN 0.4 MG CAP.ER.24H PO SCH (09:25)
[2022-03-16] MEDS: LINAGLIPTIN 5 MG TABLET PO SCH (09:27)
[2022-03-16] MEDS: metFORMIN 500 MG TAB PO SCH ×2 (09:27→20:38)
[2022-03-16] MEDS: glipiZIDE 10 MG TAB PO SCH ×2 (09:27→20:38)
[2022-03-16 09:28] LABS: Glucose,Whole Blood 92 mg/dL (70-110)
[2022-03-16 12:11] LABS: Glucose,Whole Blood 104 mg/dL (70-110)
[2022-03-16 16:58] LABS: Glucose,Whole Blood 165 mg/dL (70-110)
[2022-03-16 20:32] LABS: Glucose,Whole Blood 169 mg/dL (70-110)
[2022-03-16] MEDS: ATORVASTATIN 10 MG TAB PO SCH (20:38)
--- NOTE | 2022-03-16 21:29 | P.PN ---
Subjective 81-year old male presented to the hospital for evaluation of worsening swelling and redness to the left fourth toe patient started having a problem with a left fourth toe about a month ago in January patient not very clear how it started however the patient mention has been going to the wound care center last seen on Sunday and was started on Keflex however the patient seem to have increasing swelling and redness of the left fourth toe and some foul-smelling drainage, with worsening swelling and redness swelling to the dorsal aspect of the left foot for the patient presented to hospital on arrival to the ER the patient was afebrile patient did have x-ray suggestive of left fourth toe distal phalanx osteomyelitis patient did have mild leukocytosis with left shift creatinine was normal lactic acid was elevated repeat is normal no exams are normal patient was started on vancomycin infectious disease was consulted for further management of antibiotic therapy 03/12/2022 Patient is seen and evaluated in room at bedside; denies any complaints; reports optimal pain control Vital signs are stable temperature of 96.3, pulse 86, respiration 20 blood pressure of 97/62 and O2 saturation of 99% Blood work review stable CBC 10.3, hemoglobin of 11.1 and platelet count of 301; sodium 139, potassium 4.0, BUN/creatinine of 12.3/1.0 Patient is status post ray amputation of left fourth toe for osteomyelitis; deep tissue cultures are obtained; local wound care as recommended ID on board for further recommendations on final choice of antibiotics 03/13/2022 Patient is status post debridement and amputation yesterday. Today patient is denying any other symptoms He remains on Unasyn for MSSA Patient is eating well, hemodynamically stable and creatinine stable. We'll discontinue IV fluids We'll ask for PT/OT evaluation 03/14/2022 Patient generally is doing well, no new symptoms. This patient glucose is controlled He remains on Unasyn pending final tissue culture results Physical therapy evaluation 2021 Patient clinically stable Continue with Unasyn while pending for final results of the tissue culture, currently showing presumptive staph, and diphtheroids species. Physical therapist recommended home health clear which is ordered 03/16/2022 Patient has no change in his situation. Patient feels board and he wants to be discharged. It is Explained for the patient still pending final results of the wound culture and he is agreeable with the plan. Patient continued on Unasyn Patient can be discharged in 24-48 hours was final wound cultures has finalized and discharge antibiotics has been set up. Objective - Vital Signs Vital signs: Vital Signs Temp 96 F L 03/16/22 12:37 Pulse 85 03/16/22 12:37 Resp 18 03/16/22 12:37 BP 113/68 03/16/22 12:37 Pulse Ox 92 L 03/16/22 12:37 FiO2 Intake & Output 03/15/22 03/16/22 03/16/22 18:59 06:59 18:59 Intake Total 720 600 240 Output Total 4458 472 9809 Balance -480 -100 -960 Weight 115.666 kg Intake: Intake, IV Titration 100 Amount Ampicillin-Sulbactam 3 gm 100 In Sodium Chloride 0.9% 100 ml @ 200 mls/hr IVPB Q6HR [facility] Rx#:[id number] Oral 720 500 240 Output: Urine 8258 540 0334 Other: Voiding Method Urinal Urinal Toilet Urinal # Voids 300 - Exam GENERAL: The patient is alert and oriented x3, not in any acute distress. Well developed, well nourished. HEENT: Pupils are round and equally reacting to light. EOMI. No scleral icterus. No conjunctival pallor. Normocephalic, atraumatic. No pharyngeal erythema. No thyromegaly. CARDIOVASCULAR: S1 and S2 present. No murmurs, rubs, or gallops. PULMONARY: Chest is clear to auscultation, no wheezing or crackles. ABDOMEN: Soft, nontender, nondistended, normoactive bowel sounds. No palpable organomegaly. MUSCULOSKELETAL: No joint swelling or deformity. -EXTREMITIES: No cyanosis, clubbing, or pedal edema. Left foot in a dressing NEUROLOGICAL: Gross neurological examination did not reveal any focal deficits. SKIN: No rashes. no petechiae. - Labs CBC & Chem 7: 03/13/22 03:48 03/13/22 03:48 Labs: Abnormal Lab Results - Last 24 Hours (Table) 03/15/22 03/15/22 03/16/22 Range/Units 17:18 19:41 06:58 POC Glucose (mg/dL) 129 H 162 H 68 L (70-110) mg/dL Microbiology - Last 24 Hours (Table) 03/12/22 10:55 Anaerobic Culture - Preliminary Other - Other Assessment and Plan Assessment: 1. Osteomyelitis left fourth and fifth toe -Status post amputation of the fourth toe with local wound debridement on by vascular surgery team -local wound culture has been obtained to guide further guide therapy -Continue with antibiotic per ID team, currently on Unasyn for MSSA 2. Diabetes mellitus; continue with home dose of glipizide, metformin and Tradjenta; monitor Accu-Cheks before meals and at bedtime with insulin sliding scale 3. Hypertension; Lasix 40 mg daily; currently not on any other antihypertensive therapy 4. Hyperlipidemia; Lipitor 10 mg by mouth daily at bedtime 5. Hyperuricemia/gout; allopurinol 300 mg daily; ibuprofen 400 mg every 6 hours 6. BPH; Flomax 0.4 mg daily DVT prophylaxis; SCDs CODE STATUS; full code
--- NOTE | 2022-03-16 23:36 | P.PN ---
Subjective Progress Note Date: 03/13/22 Principal diagnosis: Left fourth toe gangrene Patient is a 81-year-old male with a past medical history significant for diabetes mellitus, presenting to the hospital with left fourth toe gangrene and diabetic foot infection in this patient who is status post debridement of the wound followed by amputation of the left fourth toe completed 03/12/2022 On today's evaluation that is 03/13/2022, the patient remains to be afebrile, patient pain to his left fourth toe amputation site is controlled, patient denies having any chest pain shortness of breath or cough no abdominal pain no diarrhea Objective - Vital Signs Vital signs: Vital Signs Temp 97.8 F 03/13/22 13:06 Pulse 87 03/13/22 13:06 Resp 18 03/13/22 13:06 BP 144/77 03/13/22 13:06 Pulse Ox 96 03/13/22 13:06 FiO2 Intake & Output 03/13/22 03/13/22 03/14/22 06:59 18:59 06:59 Intake Total 680 Output Total 125 2350 Balance -125 -1670 Intake: Oral 680 Output: Urine 125 2350 Other: Voiding Method Urinal Urinal # Voids 1 0 - Exam GENERAL DESCRIPTION: An elderly male lying in bed in no distress RESPIRATORY SYSTEM: Unlabored breathing , decreased breath sounds at bases HEART: S1 S2 regular rate and rhythm , ABDOMEN: Soft , no tenderness EXTREMITIES: Left fourth toe amputation site is currently dressed no drainage on the dressing - Labs CBC & Chem 7: 03/13/22 03:48 03/13/22 03:48 Labs: Abnormal Lab Results - Last 24 Hours (Table) 03/13/22 03/13/22 03/13/22 Range/Units 03:48 03:48 12:12 RBC 3.64 L (4.40-5.60) X 10*6/uL Hgb 10.9 L (13.0-17.0) g/dL Hct 33.9 L (39.6-50.0) % RDW 15.4 H (11.5-14.5) % Glucose 150 H (70-110) mg/dL POC Glucose (mg/dL) 113 H (70-110) mg/dL Calcium 8.6 L (8.7-10.3) mg/dL 03/13/22 03/13/22 Range/Units 16:46 20:28 RBC (4.40-5.60) X 10*6/uL Hgb (13.0-17.0) g/dL Hct (39.6-50.0) % RDW (11.5-14.5) % Glucose (70-110) mg/dL POC Glucose (mg/dL) 171 H 144 H (70-110) mg/dL Calcium (8.7-10.3) mg/dL Microbiology - Last 24 Hours (Table) 03/12/22 10:55 Anaerobic Culture - Preliminary Other - Other 03/12/22 10:55 Tissue Culture - Preliminary Other - Other Assessment and Plan (1) Osteomyelitis Current Visit: Yes Status: Acute Code(s): M86.9 - OSTEOMYELITIS, UNSPECIFIED SNOMED Code(s): 32765861 Plan: 1patient with a left fourth toe diabetic foot infection started with an injury more than a month ago and apparently has been getting worse and did not respond to the oral Keflex possibly community associated MRSA versus a gram-negative infection 2-local wound culture has been obtained which are currently growing MSSA 3-vascular surgery has evaluated the patient is status post debridement followed by amputation and deep cultures which are currently pending 4 continue the patient on Unasyn Time with Patient: Less than 30
--- NOTE | 2022-03-16 23:37 | P.PN ---
Subjective Progress Note Date: 03/14/22 Principal diagnosis: Left fourth toe gangrene Patient is a 81-year-old male with a past medical history significant for diabetes mellitus, presenting to the hospital with left fourth toe gangrene and diabetic foot infection in this patient who is status post debridement of the wound followed by amputation of the left fourth toe completed 03/12/2022 On today's evaluation that is 03/14/2022, the patient continues to be afebrile, patient denies pain to his left fourth toe amputation site, patient denies having any chest pain shortness of breath or cough no abdominal pain no diarrhea with antibiotic therapy Objective - Vital Signs Vital signs: Vital Signs Temp 97.9 F 03/14/22 11:24 Pulse 94 03/14/22 11:24 Resp 19 03/14/22 11:24 BP 143/79 03/14/22 11:24 Pulse Ox 95 03/14/22 11:24 FiO2 Intake & Output 03/13/22 03/14/22 03/14/22 18:59 06:59 18:59 Intake Total 680 Output Total 2350 725 Balance -1670 -725 Intake: Oral 680 Output: Urine 2350 725 Other: Voiding Method Urinal Urinal Toilet # Voids 0 - Exam GENERAL DESCRIPTION: An elderly male lying in bed in no distress RESPIRATORY SYSTEM: Unlabored breathing , decreased breath sounds at bases HEART: S1 S2 regular rate and rhythm , ABDOMEN: Soft , no tenderness EXTREMITIES: Left fourth toe amputation site is currently dressed no drainage on the dressing - Labs CBC & Chem 7: 03/13/22 03:48 03/13/22 03:48 Labs: Abnormal Lab Results - Last 24 Hours (Table) 03/13/22 03/13/22 03/13/22 Range/Units 12:12 16:46 20:28 POC Glucose (mg/dL) 113 H 171 H 144 H (70-110) mg/dL Microbiology - Last 24 Hours (Table) 03/12/22 10:55 Gram Stain - Preliminary Other - Other Tissue Culture - Preliminary 03/12/22 10:55 Anaerobic Culture - Preliminary Other - Other Assessment and Plan (1) Osteomyelitis Current Visit: Yes Status: Acute Code(s): M86.9 - OSTEOMYELITIS, UNSPECIFIED SNOMED Code(s): 87080493 Plan: 1patient with a left fourth toe diabetic foot infection started with an injury more than a month ago and apparently has been getting worse and did not respond to the oral Keflex possibly community associated MRSA versus a gram-negative infection 2-local wound culture has been obtained which are currently growing MSSA 3- the patient is status post debridement followed by amputation and deep cultures which are currently pending 4 continue the patient on Unasyn while waiting for deep cultures to be finalized Time with Patient: Less than 30
--- NOTE | 2022-03-16 23:38 | P.PN ---
Subjective Progress Note Date: 03/15/22 Principal diagnosis: Left fourth toe gangrene Patient is a 81-year-old male with a past medical history significant for diabetes mellitus, presenting to the hospital with left fourth toe gangrene and diabetic foot infection in this patient who is status post debridement of the wound followed by amputation of the left fourth toe completed 03/12/2022 On today's evaluation that is 03/15/2022, the patient remains to be afebrile, patient denies pain to his left fourth toe amputation site, patient denies chest pain shortness of breath or cough , the pt denies abdominal pain no diarrhea with antibiotic therapy Objective - Vital Signs Vital signs: Vital Signs Temp 97.5 F L 03/15/22 13:17 Pulse 91 03/15/22 13:17 Resp 18 03/15/22 13:17 BP 140/69 03/15/22 13:17 Pulse Ox 92 L 03/15/22 13:17 FiO2 Intake & Output 03/14/22 03/15/22 03/15/22 18:59 06:59 18:59 Intake Total 100 480 Balance 100 480 Weight 115.666 kg Intake: Intake, IV Titration 100 Amount Ampicillin-Sulbactam 3 gm 100 In Sodium Chloride 0.9% 100 ml @ 200 mls/hr IVPB Q6HR [facility] Rx#:[id number] Oral 480 Other: Voiding Method Toilet Toilet Urinal # Voids 300 - Exam GENERAL DESCRIPTION: An elderly male lying in bed in no distress RESPIRATORY SYSTEM: Unlabored breathing , decreased breath sounds at bases HEART: S1 S2 regular rate and rhythm , ABDOMEN: Soft , no tenderness EXTREMITIES: Left fourth toe amputation site is currently dressed no drainage on the dressing - Labs CBC & Chem 7: 03/13/22 03:48 03/13/22 03:48 Labs: Abnormal Lab Results - Last 24 Hours (Table) 03/14/22 03/14/22 03/15/22 Range/Units 16:59 20:30 12:05 POC Glucose (mg/dL) 132 H 134 H 121 H (70-110) mg/dL Microbiology - Last 24 Hours (Table) 03/12/22 10:55 Anaerobic Culture - Preliminary Other - Other 03/12/22 10:55 Gram Stain - Preliminary Other - Other Tissue Culture - Preliminary Presumptive Staph aureus Coagulase Negative Staph Diphtheroid species Assessment and Plan (1) Osteomyelitis Current Visit: Yes Status: Acute Code(s): M86.9 - OSTEOMYELITIS, UNSPECIFIED SNOMED Code(s): 36647728 Plan: 1patient with a left fourth toe diabetic foot infection started with an injury more than a month ago and apparently has been getting worse and did not respond to the oral Keflex possibly community associated MRSA versus a gram-negative infection 2-local wound culture has been obtained which are currently growing MSSA 3- the patient is status post debridement followed by amputation and deep cultures which are currently pending 4 continue the patient on Unasyn however plan is to finish therapy with oral antibiotics , discussed with Dr Parks Time with Patient: Less than 30
--- NOTE | 2022-03-16 23:40 | P.PN ---
Subjective Progress Note Date: 03/16/22 Principal diagnosis: Left fourth toe gangrene Patient is a 81-year-old male with a past medical history significant for diabetes mellitus, presenting to the hospital with left fourth toe gangrene and diabetic foot infection in this patient who is status post debridement of the wound followed by amputation of the left fourth toe completed 03/12/2022 On today's evaluation that is 03/16/2022, the patient is afebrile, patient denies pain to his left fourth toe amputation site, patient denies chest pain shortness of breath or cough , the pt denies abdominal pain no diarrhea with antibiotic therapy , no new symptoms Objective - Vital Signs Vital signs: Vital Signs Temp 96 F L 03/16/22 12:37 Pulse 85 03/16/22 12:37 Resp 18 03/16/22 12:37 BP 113/68 03/16/22 12:37 Pulse Ox 92 L 03/16/22 12:37 FiO2 Intake & Output 03/15/22 03/16/22 03/16/22 18:59 06:59 18:59 Intake Total 720 600 240 Output Total 7556 474 4892 Balance -480 -100 -960 Weight 115.666 kg Intake: Intake, IV Titration 100 Amount Ampicillin-Sulbactam 3 gm 100 In Sodium Chloride 0.9% 100 ml @ 200 mls/hr IVPB Q6HR [facility] Rx#:[id number] Oral 720 500 240 Output: Urine 8627 631 6217 Other: Voiding Method Urinal Urinal Toilet Urinal # Voids 300 - Exam GENERAL DESCRIPTION: An elderly male lying in bed in no distress RESPIRATORY SYSTEM: Unlabored breathing , decreased breath sounds at bases HEART: S1 S2 regular rate and rhythm , ABDOMEN: Soft , no tenderness EXTREMITIES: Left fourth toe amputation site is currently dressed no drainage on the dressing - Labs CBC & Chem 7: 03/13/22 03:48 03/13/22 03:48 Labs: Abnormal Lab Results - Last 24 Hours (Table) 03/15/22 03/15/22 03/16/22 Range/Units 17:18 19:41 06:58 POC Glucose (mg/dL) 129 H 162 H 68 L (70-110) mg/dL Microbiology - Last 24 Hours (Table) 03/12/22 10:55 Anaerobic Culture - Preliminary Other - Other Assessment and Plan (1) Osteomyelitis Current Visit: Yes Status: Acute Code(s): M86.9 - OSTEOMYELITIS, UNSPECIFIED SNOMED Code(s): 85533356 Plan: 1patient with a left fourth toe diabetic foot infection started with an injury more than a month ago and apparently has been getting worse and did not respond to the oral Keflex possibly community associated MRSA versus a gram-negative infection 2-local wound culture has been obtained which are currently growing MSSA 3- the patient is status post debridement followed by amputation and deep cultures with MSSA , Diptheroid , anaerobe cultures pending 4 continue the patient on Unasyn however plan is to finish therapy with oral keflex and flagyl , script sent to pharmacy Time with Patient: Less than 30
[2022-03-17 02:57] VITALS: TEMP 97.4
[2022-03-17] MEDS: AMPICILLIN-SULBACTAM 3 GM in SODIUM CHLORIDE 0.9% 100 ML IVPB SCH ×2 (05:20→13:25)
[2022-03-17 07:33] LABS: Glucose,Whole Blood 81 mg/dL (70-110)
[2022-03-17] MEDS: INSULIN ASPART (NovoLOG) 100 UNIT/ML VIAL SQ SCH ×2 (09:24→13:25)
[2022-03-17 09:34] VITALS: BP 105/63; PULSE 80; RESP 18
[2022-03-17] MEDS: metFORMIN 500 MG TAB PO SCH (10:13)
[2022-03-17] MEDS: glipiZIDE 10 MG TAB PO SCH (10:14)
[2022-03-17] MEDS: FUROSEMIDE 40 MG TAB PO SCH (10:14)
[2022-03-17] MEDS: TAMSULOSIN 0.4 MG CAP.ER.24H PO SCH (10:14)
[2022-03-17] MEDS: allopurinoL 300 MG TAB PO SCH (10:14)
[2022-03-17] MEDS: LINAGLIPTIN 5 MG TABLET PO SCH (10:14)
[2022-03-17 12:00] LABS: Glucose,Whole Blood 84 mg/dL (70-110)
--- NOTE | 2022-03-17 15:00 | P.PN ---
Subjective Progress Note Date: 03/17/22 Principal diagnosis: Left fourth toe gangrene Patient is a 81-year-old male with a past medical history significant for diabetes mellitus, presenting to the hospital with left fourth toe gangrene and diabetic foot infection in this patient who is status post debridement of the wound followed by amputation of the left fourth toe completed 03/12/2022 On today's evaluation that is 03/17/2022, the patient remains to be afebrile, patient denies pain to his left fourth toe amputation site, patient denies chest pain shortness of breath or cough , the pt denies abdominal pain no diarrhea with antibiotic therapy overall feeling better and wants to go home Objective - Vital Signs Vital signs: Vital Signs Temp 97.4 F L 03/17/22 02:33 Pulse 80 03/17/22 08:00 Resp 18 03/17/22 08:00 BP 105/63 03/17/22 08:00 Pulse Ox 95 03/17/22 08:00 FiO2 Intake & Output 03/16/22 03/17/22 03/17/22 18:59 06:59 18:59 Intake Total 720 100 180 Output Total 1900 1050 Balance -1180 100 -870 Intake: Intake, IV Titration 100 Amount Ampicillin-Sulbactam 3 gm 100 In Sodium Chloride 0.9% 100 ml @ 200 mls/hr IVPB Q6HR [facility] Rx#:[id number] Oral 720 180 Output: Urine 1900 1050 Other: Voiding Method Toilet Toilet Urinal Urinal - Exam GENERAL DESCRIPTION: An elderly male lying in bed in no distress RESPIRATORY SYSTEM: Unlabored breathing , decreased breath sounds at bases HEART: S1 S2 regular rate and rhythm , ABDOMEN: Soft , no tenderness EXTREMITIES: Left fourth toe amputation site is currently dressed no drainage on the dressing - Labs CBC & Chem 7: 03/13/22 03:48 03/13/22 03:48 Labs: Abnormal Lab Results - Last 24 Hours (Table) 03/16/22 03/16/22 Range/Units 16:54 20:30 POC Glucose (mg/dL) 165 H 169 H (70-110) mg/dL Microbiology - Last 24 Hours (Table) 03/12/22 10:55 Gram Stain - Final Other - Other Tissue Culture - Final Staphylococcus aureus Coagulase Negative Staph Diphtheroid species Assessment and Plan (1) Osteomyelitis Status: Acute Code(s): M86.9 - OSTEOMYELITIS, UNSPECIFIED SNOMED Code(s): 21984478 Plan: 1patient with a left fourth toe diabetic foot infection started with an injury more than a month ago and apparently has been getting worse and did not respond to the oral Keflex possibly community associated MRSA versus a gram-negative infection 2-local wound culture has been obtained which are currently growing MSSA 3- the patient is status post debridement followed by amputation and deep cultures with MSSA , Diptheroid , anaerobe cultures pending 4 patient has shown clinical improvement with Unasyn and plan is to finish therapy with oral keflex and flagyl , script were sent to pharmacy yesterday Time with Patient: Less than 30
--- NOTE | 2022-03-17 21:29 | P.DS ---
Providers Date of admission: 03/09/22 20:43 Attending physician: Priya Byrd Consults: 03/09/22 20:43 Consult Physician Urgent Consulting Provider: Brandin Rodriguez Consult Reason/Comments: Osteomyelitis Do you want consulting provider notified?: Yes 03/10/22 13:32 Consult Physician Routine Consulting Provider: Fady Parks Consult Reason/Comments: left 4th toe wound , debridemnt and deep cultures Do you want consulting provider notified?: Yes Primary care physician: Physician Nonstaff Hospital Course: Diagnoses: 1. Osteomyelitis left fourth and fifth toe, Status post amputation of the fourth toe with local wound debridement on 03/12 by vascular surgery team 2. Diabetes mellitus 3. Hypertension 4. Hyperlipidemia 5. Hyperuricemia/gout 6. BPH Hospital course: 81-year old male presented to the hospital for evaluation of worsening swelling and redness to the left fourth toe patient started having a problem with a left fourth toe about a month ago in January patient not very clear how it started however the patient mention has been going to the wound care center last seen on Sunday and was started on Keflex however the patient seem to have increasing swelling and redness of the left fourth toe and some foul-smelling drainage, patient was admitted with osteomyelitis of these 2 toes. He underwent amputation and debridement by surgery team on 03/12. Wound culture has been finalized today and his antibiotics was adjusted upon discharge and to Flagyl and Keflex which was sent to the pharmacy by ID team. Patient informed and he agrees Other than that patient is asymptomatic and he was eager to be discharged over the last 2 days however we had to wait for his wound culture. He denies any chest pain or dyspnea, no change in urine or bowel habits. No fever. Patient was cleared for discharge by ID team and all consultants and surgical team Problems and management plan were discussed with the patient and he verbalized understanding and acceptance Patient was found stable and can be discharged home however he needs follow-up as an outpatient. Patient was instructed to follow up with PCP within one week and patient agrees Patient was instructed to call his medical insurance provider to find a nearby PCP within one week if he doesn't have one and he agrees Patient was instructed to follow up with Dr. Parks in one week and Dr. Rodriguez from ID team in 1 week as well Physical exam Gen: patient is a AAOx3, no distress CVS: S1-S2, RRR, no murmur Lungs: B/L CTA, no wheezing Abdomen: soft, no distention, no tenderness, positive bowel sounds -Extremity: no leg edema or induration, left foot wound in the bed of the fourth and fifth toe is healing with a dressing in place Time spent more than 35 minutes Patient Condition at Discharge: Serious Plan - Discharge Summary Discharge Rx Participant: No New Discharge Prescriptions: New metroNIDAZOLE [Flagyl] 500 mg PO TID #42 tab Cephalexin [Keflex] 500 mg PO Q8HR 14 Days #42 cap Continue allopurinoL [Zyloprim] 300 mg PO DAILY sitaGLIPtin PHOS/metFORMIN HCL [Janumet 50-1,000 mg Tablet] 1 tab PO BID Simvastatin [Zocor] 20 mg PO HS Tamsulosin [Flomax] 0.4 mg PO DAILY glipiZIDE [Glucotrol XL] 10 mg PO BID Furosemide [Lasix] 40 mg PO DAILY Discontinued Cephalexin [Keflex] 500 mg PO TID Discharge Medication List Simvastatin [Zocor] 20 mg PO HS 07/24/16 [History] allopurinoL [Zyloprim] 300 mg PO DAILY 07/24/16 [History] sitaGLIPtin PHOS/metFORMIN HCL [Janumet 50-1,000 mg Tablet] 1 tab PO BID 07/24/16 [History] Furosemide [Lasix] 40 mg PO DAILY 01/09/22 [History] Tamsulosin [Flomax] 0.4 mg PO DAILY 01/09/22 [History] glipiZIDE [Glucotrol XL] 10 mg PO BID 03/09/22 [History] Cephalexin [Keflex] 500 mg PO Q8HR 14 Days #42 cap 03/16/22 [Rx] metroNIDAZOLE [Flagyl] 500 mg PO TID #42 tab 03/16/22 [Rx] Follow up Appointment(s)/Referral(s): Nonstaff,Physician [Primary Care Provider] - 1-2 days Fady Parsk MD [STAFF PHYSICIAN] - 03/21/22 10:00 am Brandin Rodriguez MD [STAFF PHYSICIAN] - 03/28/22 2:30 pm [facility] Visiting Nurse, [NON-STAFF] - As Needed Patient Instructions/Handouts: Osteomyelitis (DC), Toe Amputation (DC) Activity/Diet/Wound Care/Special Instructions: low carbohydrate diet activity is restricted till you see your doctor we recommend to check you glucose 4 times per day, before each meal and at bed time, keep the results in a log book and bring it to your doctor on your appointment date if your glucose is less than 70 or more than 400 then call 911 and come to emergency room Discharge Disposition: HOME WITH HOME HEALTH SERVICES
== END 2022-03-17 13:03 | disposition home health service (06) | DRG 617 ==
LOC: EC 14:05 → 4SSUR 20:43 → 6NMEDSUR 03-10 15:20
PROVIDERS: ADMIT Hospitalist; ATTEND Hospitalist
PROC: 0Y6W0Z0 Detachment at Left 4th Toe, Complete, Open Approach (ICD-10-PCS; principal; 2022-03-12 10:00)
DX: E11.69 Type 2 diabetes mellitus with other specified complication (principal); E11.52 Type 2 diabetes mellitus with diabetic peripheral angiopathy with gangrene; M86.172 Other acute osteomyelitis, left ankle and foot; I96 Gangrene, not elsewhere classified; B95.62 Methicillin resistant Staphylococcus aureus infection as the cause of diseases classified elsewhere; E11.628 Type 2 diabetes mellitus with other skin complications; E11.65 Type 2 diabetes mellitus with hyperglycemia; E78.5 Hyperlipidemia, unspecified; E11.42 Type 2 diabetes mellitus with diabetic polyneuropathy; I10 Essential (primary) hypertension; M10.9 Gout, unspecified; N40.0 Benign prostatic hyperplasia without lower urinary tract symptoms; Z79.84 Long term (current) use of oral hypoglycemic drugs; Z79.899 Other long term (current) drug therapy; Z89.432 Acquired absence of left foot
CPT/HCPCS: 36415; 80048; 80053; 80202; 83605; 85025; 87070; 87075; 87077; 87186; 87205; 96365; 96366; 96367; 99284